=== PATIENT | female | born 1960 | race Asian ===

== ENCOUNTER 2019-02-06 15:10 | Inpatient (IN) | payer OTHER, SELFPAY ==
[2019-02-06] VITALS (24 sets, daily range): BP systolic 138–231; BP diastolic 76–113; PULSE 62–91; RESP 15–24; TEMP 36.7–36.8; O2SAT 86–96; BMI 22.8
--- NOTE | 2019-02-06 15:34 | DI.RAD.S_ITS ---
PROCEDURE: XR CHEST 1V INDICATIONS: chest pain TECHNIQUE: One view of the chest was acquired. COMPARISON: None. FINDINGS: Surgical changes and devices: None. Lungs and pleura: Low lung volumes bilaterally with compressive atelectasis. Tkyam-fzubutyp-ithyl bilateral pleural effusions without pneumothorax. Streaky bibasilar opacities likely representing atelectasis. Minimal interstitial prominence favored to represent hypoventilatory changes. Mediastinum: Mediastinal contours appear normal. Heart size is normal. Bones and chest wall: No suspicious bony lesions. Overlying soft tissues appear unremarkable. IMPRESSION: Jihox-rxkmkjan-mxrvd bilateral pleural effusions with bibasilar atelectasis. Concurrent infection/aspiration not excluded if clinically appropriate. Minimal diffuse interstitial prominence favored to represent hypoventilatory changes. Dictated by: Sigifredo Zuniga M.D. on 02/06/2019 at 15:47 Approved by: Sigifredo Zuniga M.D. on 02/06/2019 at 15:49
[2019-02-06 16:15] LABS: Add Manual Diff / Slide Review NO; Basophils Absolute Auto 100 /uL (0-100); Basophils Percent Auto 1.3 % (0-2); Eosinophils Absolute Auto 100 /uL (0-450); Eosinophils Percent Auto 1.3 % (2-4); Hematocrit 31.4 % (36-46); Hemoglobin 10.6 g/dL (12.0-16.0); Lymphocytes Absolute Auto 2000 /uL (1100-4500); Lymphocytes Percent Auto 21.7 % (25-40); Mean Corpuscular HGB Conc 33.8 % (30-36); Mean Corpuscular Hemoglobin 27.9 PG (26-34); Mean Corpuscular Volume 82.6 fL (80-100); Monocytes Absolute Auto 500 /uL (0-900); Monocytes Percent Auto 5.4 % (3-14); Neutrophils Absolute Auto 6500 /uL (1500-7000); Neutrophils Percent Auto 70.3 % (50-75); Platelet Count 331 X10^3/uL (150-400); Red Cell Distribution Width 14.4 % (11.6-14.8); White Blood Cell Count 9.3 X10^3/uL (4.5-11.0)
[2019-02-06 16:16] LABS: Prothrombin Time 11.2 SECONDS (10.1-12.7)
[2019-02-06 16:18] LABS: HEMOLYSIS < 15 (0-50); Potassium 3.5 mmol/L (3.4-5.1)
[2019-02-06 16:19] LABS: PTT Partial Thromboplastin Tim 34 SECONDS (26.4-36.2)
[2019-02-06 16:20] LABS: Alanine Aminotransferase 54 IU/L (9-52); Albumin 3.5 g/dL (3.5-5.0); Alkaline Phosphatase 134 U/L (38-126); Aspartate Aminotransferase 38 IU/L (14-36); BUN Creatinine Ratio 10.8 (6-22); Bilirubin Total 0.7 mg/dL (0.2-1.3); Blood Urea Nitrogen 26 mg/dL (7-17); Calcium 8.8 mg/dL (8.4-10.2); Carbon Dioxide 26 mmol/L (22-32); Chloride 104 mmol/L (98-107); Creatine Kinase 107 U/L (30-135); Estimated Glomerular Filt Rate 20.8 mL/min (>60); Globulin 3.4 g/dL (1.7-4.1); Glucose 185 mg/dL (70-100); Lipase 188 U/L (23-300); Sodium 140 mmol/L (137-145); Total Protein 6.9 g/dL (6.3-8.2)
--- NOTE | 2019-02-06 16:27 | ED.GENADULT ---
HPI - General Adult General Chief complaint: Hypertension Stated complaint: doctor wants her heart observed Time Seen by Provider: 02/06/19 16:26 Source: patient and family Mode of arrival: ambulatory Limitations: no limitations History of Present Illness HPI narrative: This is a 58-year-old female comes to the emergency department for complaint of hypertension and cough. Patient was saw her primary care provider on Thursday for a cough that she has had for 3 weeks. Patient states she has been taking some cough medication but has not been improving. Her primary care provider stated her blood pressure was quite high and they wanted to come to the ER but she did not. Her states there was some miscommunication and they came today. Patient has any chest pressure pain. She has felt a little short of breath. She states it is worse when she lays flat. She has had a cough that has not really been productive. She did used to be on lisinopril she stopped that months or even longer ago. She states it made her feel a little nauseated. She did not tell any of her physicians until Thursday that she had not been taking it. She does take metformin for diabetes. Denies any dyslipidemia. She has not any prior MIs, strokes. She is not on aspirin daily. Her primary care is through [facility]. She denies fevers, chills no syncope, no headaches, no chest pain or pressure. She has had some swelling that is been over the last 3 or 4 days. She has had some slight nausea. She has had some post-tussive emesis. Denies any bowel movement or urinary issues. She states she has never been told she has any renal disease. She has had a remote history of stress test. Prior . Denies tobacco, alcohol or illicit. Related Data Allergies Allergy/AdvReac Type Severity Reaction Status Date / Time Iodine and Iodide Containing Allergy Verified 02/06/19 15:21 Produc Review of Systems Review of Systems ROS Unobtainable: All systems reviewed & are unremarkable except as noted in HPI and below Constitutional Constitutional: Denies chills, Denies fever(s), Denies lethargy and Denies weakness Cardiovascular Cardiovascular: Denies chest pain, Denies diaphoresis, Denies syncope, Denies rapid heart rate, Reports edema, Denies irregular heart rhythm, Denies lightheadedness, Denies palpitations, Reports dyspnea and Reports orthopnea Respiratory Respiratory: Denies change in phlegm color, Denies chest congestion, Reports cough, Denies excessive phlegm production, Reports dyspnea, Denies stridor and Denies wheezing Gastrointestinal Gastrointestinal: Denies abdominal pain, Denies change in bowel habits, Denies diarrhea, Reports nausea and Reports vomiting (Posttussive emesis) Genitourinary Genitourinary: Denies hematuria, Denies urinary frequency, Denies dysuria, Denies flank pain, Denies urinary incontinence, Denies urinary hesitancy and Denies urinary urgency Musculoskeletal Musculoskeletal: Denies back pain Integumentary/Breasts Skin/Breast: Denies erythema Neurologic Neurologic: Denies syncope and Denies weakness Endocrine Endocrine: Denies palpitations Allergic/Immunologic Allergic/Immunologic: Denies wheezing [facility] Medical History (Updated 02/06/19 @ 18:22 by Shawanda Peck DO) Diabetes (Acute) Hypertension (Acute) Surgical History (Updated 02/06/19 @ 16:57 by Shawanda Peck DO) History of (Acute) Social History (Updated 02/06/19 @ 16:57 by Shawanda Peck DO) Smoking Status: Never smoker substance use type: does not use Social History (Updated 02/06/19 @ 16:57 by Shawanda Peck DO) Smoking Status: Never smoker substance use type: does not use Exam Narrative Exam Narrative: GENERAL: Alert and oriented x three, thin female in mild distress. HEENT: Head normocephalic, atraumatic, EOMI, pupils reactive, face symmetric, moist mucous membranes NECK: Supple, full range of motion CARDIOVASCULAR: Regular rate and rhythm without murmurs, rubs or gallops. RESPIRATORY: Breath sounds equal bilaterally, no wheezes, no rhonchi. No tachypnea. Patient does have crackles in bilateral bases and mid lung. ABDOMEN: Soft, nontender. Normoactive bowel sounds all 4 quadrants. No guarding or rebound, rigidity, no mass : No CVA tenderness EXTREMITIES: Normal range of motion, no clubbing, bilateral lower extremity edema. Neurovascularly intact NEUROLOGICAL: Cranial nerves II through XII grossly intact. Moving all extremities SKIN: Warm, dry, no petechiae, no rashes or lesions. Initial Vital Signs Initial Vital Signs: Vital Signs Temperature 98.0 F 02/06/19 15:21 Pulse Rate 89 09/15/19 15:21 Respiratory Rate 18 02/06/19 15:21 Blood Pressure 231/113 H 02/06/19 15:21 Pulse Oximetry 93 02/06/19 15:21 Course Orders Ordered: ED Orders 02/06/19 15:34 XR chest 1V Stat EKG-12 Lead Stat 02/06/19 15:55 BNP [B Type Natriuretic Peptide] Stat Complete Blood Count AUTO DIFF Stat Comprehensive Metabolic Panel Stat Lipase Stat Partial Thromboplastin Time Stat Prothrombin Time INR Stat Troponin & CK Cardiac Panel Stat 02/06/19 17:48 CT head/brain wo con Stat 02/06/19 18:00 Respiratory Panel (Film Array) Stat Discontinued Medications Aspirin (Aspirin Chew) 324 mg PO NOW ONE Stop: 02/06/19 16:49 Last Admin: 02/06/19 16:56 Dose: 324 mg Documented by: JACQUI Labetalol HCl (Trandate) 10 mg IV NOW ONE Stop: 02/06/19 17:46 Last Admin: 02/06/19 17:59 Dose: 10 mg Documented by: JACQUI Nitroglycerin (Nitro-Bid) 0.5 inch TOP NOW ONE Stop: 02/06/19 16:43 Last Admin: 02/06/19 16:55 Dose: 0.5 inch Documented by: JACQUI Vital Signs Vital signs: Vital Signs - 8 hr 02/06/19 15:21 02/06/19 16:00 02/06/19 16:12 Temperature 98.0 F Pulse Rate 89 83 84 Respiratory Rate 18 24 Blood Pressure 231/113 H Blood Pressure [Left Arm] 217/99 H Blood Pressure [Right Arm] 217/99 H Pulse Oximetry 93 93 02/06/19 16:30 02/06/19 16:55 02/06/19 17:00 Temperature Pulse Rate 84 83 83 Respiratory Rate 18 18 Blood Pressure 211/91 H Blood Pressure [Left Arm] Blood Pressure [Right Arm] 211/99 H 211/96 H Pulse Oximetry 94 92 02/06/19 17:30 02/06/19 17:59 02/06/19 18:30 Temperature Pulse Rate 79 80 72 Respiratory Rate 18 18 Blood Pressure 203/98 H Blood Pressure [Left Arm] Blood Pressure [Right Arm] 201/96 H 178/86 H Pulse Oximetry 91 92 Medical Decision Making Lab Data Lab results reviewed: Yes I reviewed the patient's lab results. Result diagrams: 02/06/19 15:55 02/06/19 15:55 Labs: Lab Results 02/06/19 02/06/19 02/06/19 Range/Units 15:55 15:55 15:55 WBC 9.3 (4.5-11.0) X10^3/uL RBC 3.80 L (4.0-5.2) X10^6/uL Hgb 10.6 L (12.0-16.0) g/dL Hct 31.4 L (36-46) % MCV 82.6 (80-100) fL MCH 27.9 (26-34) PG MCHC 33.8 (30-36) % RDW 14.4 (11.6-14.8) % Plt Count 331 (150-400) X10^3/uL Neut % (Auto) 70.3 (50-75) % Lymph % (Auto) 21.7 L (25-40) % [place] % (Auto) 5.4 (3-14) % Eos % (Auto) 1.3 L (2-4) % Baso % (Auto) 1.3 (0-2) % Neut # (Auto) 6500 (6428-4200) /uL Lymph # (Auto) 2000 (9132-9789) /uL [place] # (Auto) 500 (0-900) /uL Eos # (Auto) 100 (0-450) /uL Baso # (Auto) 100 (0-100) /uL PT 11.2 (10.1-12.7) SECONDS INR 1.0 (0.9-1.3) APTT 34 (26.4-36.2) SECONDS Sodium 140 (137-145) mmol/L Potassium 3.5 (3.4-5.1) mmol/L Chloride 104 (98-107) mmol/L Carbon Dioxide 26 (22-32) mmol/L BUN 26 H (7-17) mg/dL Creatinine 2.40 H (0.52-1.04) mg/dL Estimated GFR 20.8 L (>60) mL/min BUN/Creatinine Ratio 10.8 (6-22) Glucose 185 H (70-100) mg/dL Calcium 8.8 (8.4-10.2) mg/dL Total Bilirubin 0.7 (0.2-1.3) mg/dL AST 38 H (14-36) IU/L ALT 54 H (9-52) IU/L Alkaline Phosphatase 134 H (38-126) U/L Total Creatine Kinase 107 (30-135) U/L CK-MB (CK-2) 1.24 (<2.37) ng/mL CK-MB (CK-2) Rel Index 1.2 L (1.5-5.0) % Troponin I 0.016 (0.01-0.034) ng/mL B-Natriuretic Peptide 292 H (<100) Total Protein 6.9 (6.3-8.2) g/dL Albumin 3.5 (3.5-5.0) g/dL Globulin 3.4 (1.7-4.1) g/dL Albumin/Globulin Ratio 1.0 (1.0-2.8) Lipase 188 (23-300) U/L Imaging Data Chest x-ray: Radiologist's impression: [place] [address] XRay Report Signed Patient: Rose Ramirez LMR#: [id number] : 2Acct:[id number] Age/Sex: 58 / FDate of Service: 02/06/19 Loc: Accession Number: [id number] Procedure: XR chest 1V Ordering Provider: Shawanda Peck D.O. PROCEDURE: XR CHEST 1V INDICATIONS: chest pain TECHNIQUE: One view of the chest was acquired. COMPARISON: None. FINDINGS: Surgical changes and devices: None. Lungs and pleura: Low lung volumes bilaterally with compressive atelectasis. Mobtg-ohiqbtmn-dxqrv bilateral pleural effusions without pneumothorax. Streaky bibasilar opacities likely representing atelectasis. Minimal interstitial prominence favored to represent hypoventilatory changes. Mediastinum: Mediastinal contours appear normal. Heart size is normal. Bones and chest wall: No suspicious bony lesions. Overlying soft tissues appear unremarkable. IMPRESSION: Qgwqb-corofhwv-iandm bilateral pleural effusions with bibasilar atelectasis. Concurrent infection/aspiration not excluded if clinically appropriate. Minimal diffuse interstitial prominence favored to represent hypoventilatory changes. Dictated by: Sigifredo Zuniga M.D. on 02/06/2019 at 15:47 Approved by: Sigifredo Zuniga M.D. on 02/06/2019 at 15:49 CT scan - head: Radiologist's impression: [address] [address] [address] Scan Report Signed Patient: Rose Ramirez LMR#: [id number] : 2Acct:[id number] Age/Sex: 58 / FDate of Service: 02/06/19 Loc: ED Accession Number: [id number] Procedure: CT head/brain wo con Ordering Provider: Shawanda Peck D.O. PROCEDURE: CT HEAD/BRAIN WO CON INDICATIONS: hypertension TECHNIQUE: Noncontrast 4.5 mm thick angled axial sections acquired from the foramen magnum to the vertex, with coronal and sagittal reformats. For radiation dose reduction, the following was used: automated exposure control, adjustment of mA and/or kV according to patient size. COMPARISON: None. FINDINGS: Image quality: Excellent. CSF spaces: Basal cisterns are patent. No extra-axial fluid collections. Ventricles are normal in size and shape. Brain: No midline shift. No intracranial masses or hemorrhage. Kathleen-white matter interface is normal. Incidental note is made of a cavum septum pellucidum, which is typically not a clinically significant finding, when discovered in isolation. The corpus callosum is unremarkable on sagittal images. Skull and face: Calvarium and visualized facial bones are intact, without suspicious lesions. Sinuses: Visualized sinuses and mastoids are clear. IMPRESSION: No acute intracranial hemorrhage is seen. Dictated by: Bar Ortega M.D. on 02/06/2019 at 18:28 Approved by: Bar Ortega M.D. on 02/06/2019 at 18:29 ECG Data Attestation: I personally reviewed and interpreted this ECG as follows: Prior ECG tracings: not available for review Interpretation: Sinus rhythm nonspecific T-wave change. Rate 85 P are 126 QRS of 94 and QTC of 443. MDM Narrative Medical decision making narrative: Patient has anemia today, unknown if this is chronic or not. She does not have an elevated white count with normal platelets. Coags are normal. Patient's creatinine is 2.4 with a BUN of 26. With a GFR of 20. Patient has been urinating. She is not aware of any history of chronic kidney disease has never been told she had decreased renal function. She has slightly elevated LFTs. CK-MB is negative with a normal troponin but BNP is 292. Patient's chest x-ray shows bilateral pleural effusions. She has crackles bilaterally. She is hypertensive here in the department and suspect that her effusions may be secondary to CHF although she could potentially also have infectious or other causes related to renal failure. Spoke with Dr. Max hospitalist she accepts patient's pressures at 2:01 a.m. over 90s with nitro paste, decreased by 25% would bring her down to about 180. We discussed we do not want her to drop below that level. Will try a push dose of labetalol and re-evaluate. She did request head CT prior to transfer over to the floor. Plan for ICU but floor tele, she asks for labetolol 10mg IV push, patient pressure on repeat is 176/86. Respiratory panel. Head CT is negative. Discharge Plan Departure Patient Disposition: Admitted As Inpatient Clinical Impression: Acute kidney injury, Hypertensive urgency CHF (congestive heart failure) Qualifiers: Heart failure chronicity: acute Discharge Date/Time: 02/06/19 18:58 Admit Date/Time: 02/06/19 18:44 Admit Provider: Milagros Max
[2019-02-06 16:30] LABS: B Type Natriuretic Peptide 292 (<100)
[2019-02-06 16:32] LABS: Troponin I 0.016 ng/mL (0.01-0.034)
[2019-02-06 16:36] LABS: CKMB % Relative Index 1.2 % (1.5-5.0); Creatine Kinase MB 1.24 ng/mL (<2.37)
[2019-02-06] MEDS: NITROGLYCERIN OINT 1 INCH/GM OINT...G. 0.5 INCH TOP (16:55)
[2019-02-06] MEDS: ASPIRIN 81 MG CHEW TAB 324 MG PO (16:56)
--- NOTE | 2019-02-06 17:48 | DI.CT.S_ITS ---
PROCEDURE: CT HEAD/BRAIN WO CON INDICATIONS: hypertension TECHNIQUE: Noncontrast 4.5 mm thick angled axial sections acquired from the foramen magnum to the vertex, with coronal and sagittal reformats. For radiation dose reduction, the following was used: automated exposure control, adjustment of mA and/or kV according to patient size. COMPARISON: None. FINDINGS: Image quality: Excellent. CSF spaces: Basal cisterns are patent. No extra-axial fluid collections. Ventricles are normal in size and shape. Brain: No midline shift. No intracranial masses or hemorrhage. Kathleen-white matter interface is normal. Incidental note is made of a cavum septum pellucidum, which is typically not a clinically significant finding, when discovered in isolation. The corpus callosum is unremarkable on sagittal images. Skull and face: Calvarium and visualized facial bones are intact, without suspicious lesions. Sinuses: Visualized sinuses and mastoids are clear. IMPRESSION: No acute intracranial hemorrhage is seen. Dictated by: Bar Ortega M.D. on 02/06/2019 at 18:28 Approved by: Bar Ortega M.D. on 02/06/2019 at 18:29
[2019-02-06] MEDS: LABETALOL 20 MG/4 ML SYRINGE 10 MG IV (17:59)
--- NOTE | 2019-02-06 19:15 | PM.HP.1 ---
History of Present Illness History of Present Illness Date Patient Seen: 02/06/19 Time Patient Seen: 19:15 Chief complaint: doctor wants her heart observed Narrative: The patient is a 58-year-old [place] female who presented earlier in the day upon recommendation of the outpatient clinic. Patient was being acutely seen for cough, however she was noted to have elevated blood pressure and was asked to seek further evaluation in the ED. Patient is known to have a history of HTN and IDDM 2T (both diagnosed between 2001 and 2004). Patient admits to both chronic conditions to be poorly controlled. She specifically notes difficulty remembering to take the medication as well as intolerance to several medications prescribed before. She describes being demoralized when seeking care for the aforementioned ailments and being put off by scornful and intimidating approach from the provider. Patient states that she has not taken antihypertensives or insulin since August 2018. BP previously managed with lisinopril. She has tried metformin and other oral anti glycemics with reported intolerance. Later was placed on Lantus. Patient reports having a week long bout of diarrhea (unable to quantify), 2-3 weeks ago. There was no associated nausea or vomiting. Diarrhea self-resolved. No fever or chills at that time. She has nto traveled, however her does travel often and symptoms started after he returned from one of the trips. She does have exposure to school aged child, however there has not been known illness. No other ill contacts. The patient did travel to [facility] in , potentially had some exposure to ill contacts. Denied prior history of TB and TB like symptoms. In the past week patient has developed non-productive cough. Cough is described as spasmodic, persistent and causes her to dry heavy. The past week has also developed bilateral lower extremity edema that did not improve with extremity elevation and rest. Patient denies starting any new medications. She has been taking Mucinex [id number]. She has not had any headache, change in vision, dyspnea (at rest and with exertion), chest pain, palpitations, dizziness, lightheadedness, syncopal events, abdominal pain, gastrointestinal distress, dysuria, or symptoms of bleeding. Does not endorse particular sense of fatigue. Denies myopathy myalgia. No new rashes. Denies polydipsia, polyuria, and polyphasia; however, has had unintentional weight loss of 10-15 lb since August of 2018. Denies change in pattern of micturition. Presentation to the ED patient was noted to have blood pressure of 231/113 mmHg. Patient was asymptomatic. Patient denies history of heart disease, cerebrovascular events, kidney disease, or thrombosis. Patient History Medical History Current non-drinker of alcohol (Acute) Diabetes mellitus, type II (Acute) Esophageal dysmotility (Acute) Essential hypertension (Acute) Non-smoker (Acute) Family & Social History Family History (Updated 02/07/19 @ 00:07 by MATTHIEU Celis) Father Diabetes mellitus Prostate cancer Mother Hypertension Safety & Behavioral: Feels Safe in Current Yes. . Lives with . She has 1 son. Environment Tobacco & Substance use: Smoking Status Never, denies lifetime use Substance Use Type Never, denies lifetime use Meds Home Medications and Allergies Allergies Allergy/AdvReac Type Severity Reaction Status Date / Time Iodine and Iodide Containing Allergy Verified 02/06/19 15:21 Produc metformin AdvReac Severe Diarrhea Verified 02/07/19 00:18 Review of Systems Review of Systems ROS Unobtainable: All systems reviewed & are unremarkable except as noted in HPI and below Exam Vital Signs (past 8 hours): - 02/06/19 15:21 02/06/19 16:00 02/06/19 16:12 Temperature 98.0 F Pulse Rate 89 83 84 Respiratory Rate 18 24 Blood Pressure 231/113 H Blood Pressure [Left Arm] 217/99 H Blood Pressure [Right Arm] 217/99 H Pulse Oximetry 93 93 02/06/19 16:30 02/06/19 16:55 02/06/19 17:00 Temperature Pulse Rate 84 83 83 Respiratory Rate 18 18 Blood Pressure 211/91 H Blood Pressure [Left Arm] Blood Pressure [Right Arm] 211/99 H 211/96 H Pulse Oximetry 94 92 02/06/19 17:30 02/06/19 17:59 02/06/19 18:30 Temperature Pulse Rate 79 80 72 Respiratory Rate 18 18 Blood Pressure 203/98 H Blood Pressure [Left Arm] Blood Pressure [Right Arm] 201/96 H 178/86 H Pulse Oximetry 91 92 02/06/19 18:47 02/06/19 18:51 02/06/19 19:00 Temperature 98.3 F Pulse Rate 72 74 76 Respiratory Rate 18 21 Blood Pressure 179/85 H 178/86 H 193/102 H Blood Pressure [Left Arm] Blood Pressure [Right Arm] Pulse Oximetry 92 Oxygen Delivery Method Room Air Narrative Exam Narrative: Constitutional: NAD Neurologic: AOx3, no focal neurological deficits Head: NC, AT Eyes: PERRL, EOMI, Ears: external ears normal, no otorrhea Nose: external nose normal, no rhinorrhea or epistaxis Throat: MMM, oropharynx w/o exudate Neck: no masses, lymphadenopathy, or JVD Chest / Respiratory: equal chest rise, unlabored respiratory effort, no tachypnea, diminished, + cough Heart / CV: S1S2, no murmur Abdomen / GI: round, NT, ND, + BS, no organomegaly : no suprapubic tenderness, no CVA Peripheral / Vascular: warm to touch, DP and PT pulses palpable, 1-2+ LE edema Musc: full ROM of upper and lower extremities, adequate muscle tone and bulk Skin: no ecchymosis or suspicious lesions / ulcers Objective Labs Result Diagrams: 02/06/19 15:55 02/06/19 15:55 Labs: Laboratory Results - last 24 hr 02/06/19 02/06/19 02/06/19 15:55 15:55 15:55 WBC 9.3 RBC 3.80 L Hgb 10.6 L Hct 31.4 L MCV 82.6 MCH 27.9 MCHC 33.8 RDW 14.4 Plt Count 331 Neut % (Auto) 70.3 Lymph % (Auto) 21.7 L Hernando % (Auto) 5.4 Eos % (Auto) 1.3 L Baso % (Auto) 1.3 Neut # (Auto) 6500 Lymph # (Auto) 2000 Hernando # (Auto) 500 Eos # (Auto) 100 Baso # (Auto) 100 PT 11.2 INR 1.0 APTT 34 Sodium 140 Potassium 3.5 Chloride 104 Carbon Dioxide 26 BUN 26 H Creatinine 2.40 H Estimated GFR 20.8 L BUN/Creatinine Ratio 10.8 Glucose 185 H Calcium 8.8 Total Bilirubin 0.7 AST 38 H ALT 54 H Alkaline Phosphatase 134 H Total Creatine Kinase 107 CK-MB (CK-2) 1.24 CK-MB (CK-2) Rel Index 1.2 L Troponin I 0.016 B-Natriuretic Peptide 292 H Total Protein 6.9 Albumin 3.5 Globulin 3.4 Albumin/Globulin Ratio 1.0 Lipase 188 Assessment & Plan Assessment and plan (1) Diabetes: Problem details: dx [id number] Current visit: Yes Status: Chronic Assessment & Plan narrative: Patient is being admitted for hypertensive urgency. Hypertensive urgency, acute, present on admission, active BP on presentation, 231/113 w/ suspected acute on chronic renal dysfunction. Patient has not taken any anti hypertensive since August. Trop 0.016 and 0.023. EKG, SR w/ non-specific T wave abnormality. CXR, low lung volumes b/l w/ compressive atelectasis. Cysek-srygkxdj-nipnm bilateral pleural effusions w/o pneumothorax. Streaky bibasilar opacities likely representing atelectasis. Minimal interstitial prominence favored to represent hypoventilatory changes. CT head, negative for acute intracranial pathology - Trop 0.016 and 0.023, continue trending. Denies CP or ACS like symptons - Risk stratify. At high risk for cardiovascular anomalies and neurological events. Discussed w/ patient in detail. - Additional labs: Trop (10 pm and 4 am); BNP, A1C (add-on), FLP (4 am) - Received 325 mg ASA in ED. Continue 81 mg ASA daily. - Received 0.5 inch paste of nitro paste and 10 mg IV labetalol - Give 80 mg of verapamil (SBP 189-193), continue labetalol 10 mg IV Q6H prn - Goal Bp reduction 15-25% in the next 24 hours - Echo - This patient would benefit from an outpatient sleep study - Consider repeating CXR, monitor for s/s of heart failure PAUL on CKD, suspected, present on admission, active I suspected that the patient does have an underlying CKD given history of poorly controlled diabetes and blood pressure. Cr 2.4 on presentation (baseline is not known). GFR 20.8 ml/min. CrCl 24 ml/min per Cockcroft-Gault Equation Alk Phos 134 (concern for CKD-MBD) and Hbg 10.6 (concern for renal anemia), if renal insufficiency is chronic. - Presumed PAUL-on-CKD, w/ suspected target organ damage in the setting of hypertensive urgency - Obtain records from PCP to review labs, determine baseline (order placed request records from the past to PCPs, as patient has recently changed providers) - Trend renal function w/ daily lab - UA to evaluate for proteinuria and abnormal sediment. - Renal ultrasound in a.m. - Gentle hydration - Strick I/O, daily weight DM 2T w/ hyperglycemia, insulin dependent, chronic condition, present on admission, active History of poorly controlled DM w/o prior known complications. Unintentional weight loss of 10-15 lbs since August 2018. Denies polydipsia, polyuria, and polyphagia. - Check A1C - Check UA for proteinuria and abnormal sediment. If proteinuria present, then will quantify by obtaining protein/creatining ratio. - AC/HS, SSI medium dose - D50 prn for hypoglycemia Normocytic normochromic anemia, suspected to be chronic condition, present on admission Hgb 10.6. Patietn is asymptomatic. No s/s of bleeding. Not on AC or anti-thrombotic agents. Denies NSAID use. Potentially multi-factorial... consider nutritional deficiencies and diminished erythropoietin in the setting of kidney disease - iron studies Transaminitis, acute / mild / asymptomatic, present on admission, active AST 38 ALT 54 , potentially in the setting acute inflammation/underlying metabolic derangements vs fatty liver - Trend Cough, acute / persistent, present on admission, active Nonproductive. No associated fever or chills. - acute bronchitis vs acute heart failure - albuterol tx now, and Q4H prn - guaifenesin w/ codeine Q6H prn cough - respiratory viral panel pending Code status discussed. Patient wishes to be full code. Designates spouse Laron Ramirez as a proxy decision maker. Patient denies taking any home medications since August 2018, with exception of Mucinex (acutely). Functionally independent at baseline. VT prophylaxis with heparin SQ, SCDs
[2019-02-06 20:25] LABS: Adenovirus Not Detected (Not Detect); Bordetella pertussis Not Detected (Not Detect); Chlamydophila pneumoniae Not Detected (Not Detect); Coronavirus 229E Not Detected (Not Detect); Coronavirus HKU1 Not Detected (Not Detect); Coronavirus NL 63 Not Detected (Not Detect); Coronavirus OC43 Not Detected (Not Detect); Human Metapneumovirus Not Detected (Not Detect); Human Rhinovirus/Enterovirus Not Detected (Not Detect); Influenza A Not Detected (Not Detect); Influenza B Not Detected (Not Detect); Mycoplasma pneumoniae Not Detected (Not Detect); Parainfluenza Virus 1 Not Detected (Not Detect); Parainfluenza Virus 2 Not Detected (Not Detect); Parainfluenza Virus 3 Not Detected (Not Detect); Parainfluenza Virus 4 Not Detected (Not Detect); Respiratory Syncytial Virus Not Detected (Not Detect)
--- NOTE | 2019-02-06 20:37 | DI.US.S_ITS ---
PROCEDURE: US RENAL COMPLETE INDICATIONS: RENAL INJURY TECHNIQUE: Real-time scanning was performed of the kidneys and bladder, with image documentation. COMPARISON: [facility], CR, XR CHEST 1V, 02/06/2019, 16:27. FINDINGS: Kidneys: Kidneys are normal in size. Right kidney measures 10.6 cm long; left kidney measures 11.2 cm long. Right renal cortical thickness is 1.7 cm; left renal cortical thickness is 1.7 cm. Renal cortical echotexture is normal. No hydronephrosis or nephrolithiasis. No suspicious solid mass lesions. Bladder: Pre-void bladder volume was not able to be assessed as the bladder was empty. Miscellaneous: No free pelvic fluid. Bilateral pleural effusions are present. IMPRESSION: 1. Normal sonographic evaluation of the bilateral kidneys without evidence for obstructive uropathy. 2. Bilateral pleural effusions. Dictated by: Sigifredo Zuniga M.D. on 02/07/2019 at 6:41 Approved by: Sigifredo Zuniga M.D. on 02/07/2019 at 6:49
[2019-02-06 21:08] LABS: B Type Natriuretic Peptide 286 (<100)
[2019-02-06 21:37] LABS: Troponin I 0.023 ng/mL (0.01-0.034)
[2019-02-06] MEDS: SODIUM CHLORIDE 0.9% 1,000 ML 50 ML IV (22:21)
[2019-02-06] MEDS: HEPARIN 5,000 UNIT/ML VIAL 5000 UNIT SUBCUT (22:22)
[2019-02-06] MEDS: VERAPAMIL 80 MG TABLET PO (22:23)
[2019-02-06] MEDS: ALBUTEROL 1.25 MG/3 ML NEB (PEDIATRIC) INH (22:34)
[2019-02-06 23:02] LABS: Appearance Urine UA CLEAR; Bilirubin Urine UA NEGATIVE (NEGATIVE); Color Urine UA YELLOW; Glucose Urine UA 1+ g/dL (Negative); Ketones Urine UA NEGATIVE (NEGATIVE); Leukocyte Esterase Urine UA NEGATIVE (NEGATIVE); Nitrite Urine UA NEGATIVE (Negative); Occult Blood Urine UA 2+ (Negative); Protein Urine UA 3+ (Negative); Specific Gravity Urine UA 1.015 (1.000-1.035); Urobilinogen Urine UA 0.2 E.U./dL (0.2)
--- NOTE | 2019-02-06 23:13 | DI.ECHO.S_ITS ---
[facility] +---------+ Hospital +---------+ : : [address] : : : : [id number] : : : : Phone: [phone]+ Echocardiogram Report + + :Name: KIANA BHATIA Study Date: 02/07/2019 Height: 63 in : :[facility] Weight: 128 lb : : Gender: Female BSA: 1.6 m2 : :: 1960 Age: 58 yrs BP: 184/100 mmHg: :Reason For Study: HYPERTENSIVE URGENCY, PERIPHERAL EDEMA : :Ordering Physician: Diane : :Hospitalist Performed By: Amparo Villalpando : :Referring: GISSELLE QUINTEROS : + + Interpretation Summary The left ventricle is normal in size. Left ventricular systolic function is low normal. The ejection fraction is estimated to be 50-55%. There are no focal wall motion abnormalities. There is probable evidence for grade II LV diastolic dysfunction or pseudonormalization, consistent with increased LV filling pressures. Clinical correlation is recommended. The right ventricle is normal in size and function. The right ventricular systolic pressure is estimated to be at least 42 mmHg based on an estimated right atrial pressure of 15 mm Hg. The left atrium is severely dilated. Right atrial size is normal. There is mild mitral regurgitation. There is no other significant valvular heart disease. The aortic root is normal size. There is a trace pericardial effusion that is circumferential. There are large-sized bilateral pleural effusions noted. Procedure: A two-dimensional transthoracic echocardiogram with color flow and Doppler was performed. The study quality was technically good. There is no prior echocardiogram noted for this patient. The patient was in normal sinus rhythm during the exam. Left Ventricle: The left ventricle is normal in size. There is normal left ventricular wall thickness. Left ventricular systolic function is low normal. The ejection fraction is estimated to be 50-55%. There are no focal wall motion abnormalities. There is probable evidence for grade II LV diastolic dysfunction or pseudonormalization, consistent with increased LV filling pressures. Clinical correlation is recommended. Right Ventricle: The right ventricle is normal in size and function. Atria: The left atrium is severely dilated. Right atrial size is normal. There is no Doppler evidence for an interatrial shunt. Mitral Valve: The mitral valve is normal. There is mild mitral regurgitation. Aortic Valve: The aortic valve is normal in structure and function. There is trace aortic regurgitation. Tricuspid Valve: The tricuspid valve is normal. There is mild tricuspid regurgitation. The right ventricular systolic pressure is estimated to be at least 42 mmHg based on an estimated right atrial pressure of 15 mm Hg. Pulmonic Valve: The pulmonic valve is not well seen, but is grossly normal. There is a trace or physiologic amount of pulmonic regurgitation. There is no other significant valvular heart disease. Great Vessels: The aortic root is normal size. The ascending aorta is normal in size. The aortic arch is normal in size. The pulmonary is not well visualized. The IVC is dilated (diameter is greater than 2.1 cm) and it collapses less than 50% with a sniff. This suggests a high right atrial pressure of 15 mm Hg. Pericardium/ Pleura There is a trace pericardial effusion that is circumferential. There are no echocardiographic indications of cardiac tamponade. There are large-sized bilateral pleural effusions noted. MMode/2D Measurements & Calculations LVIDd: 5.1 cm LVOT diam: 1.8 cm LVIDs: 3.6 cm Ao root diam: 2.8 cm FS: 29.4 % asc Aorta Diam: 3.0 cm EPSS: 1.6 cm Ao Arch Diam (Prox Trans): 2.3 cm IVSd: 0.88 cm LVPWd: 0.88 cm LV temple. diameter/BSA (cm/m^2): 3.2 LV sys. diameter/BSA (cm/m^2): 2.2 LA A2 area: 25.6 cm2 RA long axis: 4.6 cm LA A4 area: 21.9 cm2 RA area: 14.0 cm2 LA length (vol): 5.7 cm RA vol: 36.2 ml LA vol: 83.1 ml RA : 22.6 ml/m2 LA vol index: 51.9 ml/m2 IVC diam: 2.3 cm RVD1 (basal): 2.5 cm RVD2 (mid): 1.7 cm TAPSE: 2.1 cm Doppler Measurements & Calculations Ao V2 max: 156.5 cm/sec LVOT Max Melvin: 88.9 cm/sec Ao V2 mean: 110.7 cm/sec LV V1 max P.2 mmHg Ao max P.8 mmHg LV V1 VTI: 18.1 cm Ao mean P.3 mmHg MYESHA(I,D): 1.4 cm2 Ao V2 VTI: 31.9 cm MYESHA(V,D): 1.4 cm2 sev ratio: 0.57 MYESHA indexed to BSA (cm^2/m^2): 0.86 MV E max melvin: 99.5 cm/sec TR max melvin: 261.8 cm/sec MV A max melvin: 110.8 cm/sec TR max P.4 mmHg MV E/A: 0.90 PA V2 max: 82.4 cm/sec Med Peak E' Melvin: 4.1 cm/sec PA V2 mean: 57.2 cm/sec E/E' med: 24.2 PA mean P.4 mmHg Lat Peak E' Melvin: 5.1 cm/sec PA Accel Time: 0.06 sec E/E' lat: 19.7 E/e' average: 22.0 MV dec time: 0.24 sec SV(LVOT): 44.2 ml Reading Physician:12:23 PM
[2019-02-06 23:16] LABS: Bacteria Urine Few (2-10); Culture Indicated Urine Cult Not Indicated; Hyaline Casts Urine 0-1/LPF; RBC Urine 1-5/HPF (0-5/HPF); Squamous Epithelial Cell Urine 0-1 /HPF (0-5/HPF); WBC Urine 0-1/HPF (0-5/HPF)
--- NOTE | 2019-02-06 23:33 | PC.NURSE ---
zeb note Pt with frequent dry tight cough, nonproductive. Incentive spirometry teaching done by RT. Pt able to pull volume of 500-750 max. Neb tx done. O2 sats 90-92% on room air at rest. UA sent. O2 sats 93% after using bathroom. When pt fell asleep, sats down to 86%. O2 added at 2 L per ER order.
[2019-02-06 23:49] LABS: Hemoglobin A1C% w Est Avg Glu 8.3 % (4.0-6.0)
[2019-02-06 23:58] LABS: Creatinine Urine Random 97.1 mg/dL
[2019-02-07] VITALS (27 sets, daily range): BP systolic 144–199; BP diastolic 70–100; PULSE 59–76; RESP 14–23; TEMP 36.3–36.8; O2SAT 78–97
[2019-02-07] MEDS: LABETALOL 20 MG/4 ML SYRINGE 10 MG IV ×3 (04:09→17:36)
[2019-02-07 04:53] LABS: Cholesterol 220 mg/dL (140-199); HDL Cholesterol 39 mg/dL (40-60); LDL Cholesterol Calculated 150 mg/dL (<100); Triglycerides 157 mg/dL (35-150)
[2019-02-07 04:54] LABS: Alanine Aminotransferase 42 IU/L (9-52); Albumin 2.9 g/dL (3.5-5.0); Albumin Globulin Ratio 0.9 (1.0-2.8); Alkaline Phosphatase 113 U/L (38-126); Aspartate Aminotransferase 36 IU/L (14-36); BUN Creatinine Ratio 10.8 (6-22); Bilirubin Total 0.5 mg/dL (0.2-1.3); Blood Urea Nitrogen 27 mg/dL (7-17); Calcium 8.4 mg/dL (8.4-10.2); Carbon Dioxide 26 mmol/L (22-32); Chloride 106 mmol/L (98-107); Estimated Glomerular Filt Rate 19.9 mL/min (>60); Globulin 3.2 g/dL (1.7-4.1); Glucose 174 mg/dL (70-100); HEMOLYSIS < 15 (0-50); Potassium 3.5 mmol/L (3.4-5.1); Sodium 138 mmol/L (137-145); Total Protein 6.1 g/dL (6.3-8.2)
[2019-02-07 04:56] LABS: Add Manual Diff / Slide Review NO; Basophils Absolute Auto 100 /uL (0-100); Basophils Percent Auto 1.4 % (0-2); Eosinophils Absolute Auto 100 /uL (0-450); Eosinophils Percent Auto 1.8 % (2-4); Hemoglobin 9.2 g/dL (12.0-16.0); Lymphocytes Absolute Auto 2400 /uL (1100-4500); Lymphocytes Percent Auto 30.4 % (25-40); Mean Corpuscular HGB Conc 33.9 % (30-36); Mean Corpuscular Hemoglobin 28.2 PG (26-34); Mean Corpuscular Volume 83.3 fL (80-100); Monocytes Absolute Auto 500 /uL (0-900); Monocytes Percent Auto 5.7 % (3-14); Neutrophils Absolute Auto 4800 /uL (1500-7000); Neutrophils Percent Auto 60.7 % (50-75); Platelet Count 288 X10^3/uL (150-400); Red Blood Cell Count 3.24 X10^6/uL (4.0-5.2); Red Cell Distribution Width 14.3 % (11.6-14.8); White Blood Cell Count 7.9 X10^3/uL (4.5-11.0)
[2019-02-07 05:04] LABS: Troponin I 0.024 ng/mL (0.01-0.034)
[2019-02-07 05:12] LABS: HEMOLYSIS < 15 (0-50); Iron 25 ug/dL (37-170)
[2019-02-07 05:22] LABS: Percent Iron Saturation 14 % (15-50); Total Iron Binding Capacity 178 ug/dL (265-497); Transferrin 152 mg/dL (206-381)
[2019-02-07] MEDS: HEPARIN 5,000 UNIT/ML VIAL 5000 UNIT SUBCUT ×2 (08:19→21:52)
[2019-02-07] MEDS: AMLODIPINE 5 MG TABLET PO (08:19)
[2019-02-07] MEDS: INSULIN ASPART 100 UNIT/ML INSULN PEN SUBCUT ×4 (08:47→21:53)
[2019-02-07] MEDS: ASPIRIN 81 MG CHEW TAB PO (08:48)
[2019-02-07] MEDS: CODEINE/GUAIFENESIN LIQUID 5ML UDC 10 ML PO ×2 (08:49→22:14)
[2019-02-07] MEDS: NITROGLYCERIN OINT 1 INCH/GM OINT...G. 0.5 INCH TOP ×2 (08:53→14:27)
--- NOTE | 2019-02-07 10:35 | PC.NURSE ---
Addendum entered by Aliyah Mantilla R.N. 02/07/19 14:35: pt received 40mg ivp of lasix (one time order) resting comfortably at this time Original Note: pt continues with htn but it responded well with iv dose of labetolol and po amlodipine as well 1/2 ntg - she has persistant dry cough and fair appetite- she denies pain and nausea - no void as of yet
[2019-02-07 11:45] LABS: Troponin I 0.015 ng/mL (0.01-0.034)
[2019-02-07] MEDS: FUROSEMIDE 40 MG/4 ML VIAL IV (14:28)
[2019-02-07 15:00] LABS: Protein (Total) Urine Random 987 mg/dL (0-12); Protein Creatinine Ratio Urine 10.16 GRAM/24H
--- NOTE | 2019-02-07 15:28 | CM.DANOTE ---
DCP/Assessment: Reviewed chart. Patient is a 58yr old female admitted to [facility] for hypertensive emergency. Primary payor is 1)Caitie Ramirze. PCP is Dr. Villar at [facility]. Met with patient explained CM/SW role. Patient reports that she just woke up Patient resides with spouse/Laron in [place]. Patient reports that she is completely I with all ADL's. Patient drives at baseline. Notes report patient with probable medication compliance. Patient clearly reports that she forgets to take her medications. Spoke with RN and she will touch base with spouse about possibility of pill tracking system. P: Anticipate home when medically stable. ROBERTO Jj Discharge Planning/Care Management CM Discharge Assessment Start: 02/07/19 15:25 Freq: Status: Active Protocol: Document 02/07/19 15:25 KJS (Rec: 02/07/19 15:28 KJS [id number]) Discharge Planning Assessment Assigned Clinical Documentation Consultant ROBERTO Jj Advance Directives? No History Provided By Patient,Medical Record Prior Living Arrangements House Household Members spouse Type of transporation used prior to Drives own vehicle admit Is patient alert and oriented? Yes Caregiver for Another No Barriers to Discharge No Discharge Plan Home Transportation Arrangement Spouse to provide transport. Whiteboard Updated in Patient Room with Yes name and ext. # of Clinical Documentation Consultant Review Status In Process Next Review Type Continued Stay Review
--- NOTE | 2019-02-07 16:18 | P.PN_ITS ---
Subjective Subjective Date Patient Seen: 02/07/19 Interval history: Rose Ramirez is a 58-year-old Burmese female with a past medical history significant for medication non-compliance, hypertension, hyperlipidemia, and diabetes mellitus type II, non insulin using who presented earlier in the day upon recommendation of the outpatient clinic. The patient is resting in bed comfortably and in no acute distress. She has a mild non-productive cough related to CHF. She has no other complaints and denies headache, shortness of breath, chest pain, abdominal pain, nausea, vomiting, fever, chills, dysuria, diarrhea or constipation. She is voiding and eliminating without difficulty. She is up ambulating without assistance. Exam Vital Signs (past 8 hours): - 02/07/19 08:53 02/07/19 09:12 02/07/19 10:46 Temperature Pulse Rate 70 69 Respiratory Rate 22 Blood Pressure 184/100 H 155/86 H 161/89 H Pulse Oximetry 94 02/07/19 12:00 02/07/19 12:46 02/07/19 14:00 Temperature 98.3 F Pulse Rate 67 67 Respiratory Rate 21 14 Blood Pressure 173/91 H Pulse Oximetry 93 94 90 L Oxygen Delivery Method Room Air Oxygen Flow Rate 0 Objective Labs Result Diagrams: 02/07/19 04:10 02/07/19 04:10 Labs: Laboratory Results - last 24 hr 02/06/19 02/06/19 02/06/19 15:55 15:55 15:55 WBC RBC Hgb Hct MCV MCH MCHC RDW Plt Count Neut % (Auto) Lymph % (Auto) [place] % (Auto) Eos % (Auto) Baso % (Auto) Neut # (Auto) Lymph # (Auto) [place] # (Auto) Eos # (Auto) Baso # (Auto) PT 11.2 INR 1.0 APTT 34 Sodium 140 Potassium 3.5 Chloride 104 Carbon Dioxide 26 BUN 26 H Creatinine 2.40 H Estimated GFR 20.8 L BUN/Creatinine Ratio 10.8 Glucose 185 H Hemoglobin A1c Calcium 8.8 Magnesium Iron TIBC % Saturation Transferrin Total Bilirubin 0.7 AST 38 H ALT 54 H Alkaline Phosphatase 134 H Total Creatine Kinase 107 CK-MB (CK-2) 1.24 CK-MB (CK-2) Rel Index 1.2 L Troponin I 0.016 B-Natriuretic Peptide 292 H Total Protein 6.9 Albumin 3.5 Globulin 3.4 Albumin/Globulin Ratio 1.0 Triglycerides Cholesterol LDL Cholesterol, Calc HDL Cholesterol Lipase 188 Urine Color Urine Appearance Urine pH Ur Specific [place] Urine Protein Urine Glucose (UA) Urine Ketones Urine Occult Blood Urine Nitrate Urine Bilirubin Urine Urobilinogen Ur Leukocyte Esterase Urine RBC Urine WBC Ur Squamous Epith Cells Urine Bacteria Hyaline Casts Ur Culture Indicated? U Random Total Protein Urine Creatinine Protein/Creatinin Ratio Nasal Screen MRSA (PCR) Chlamy pneumoniae PCR Adenovirus (PCR) B.parapertussis DNA PCR Coronavirus OC43 (PCR) Coronavirus HKU1 (PCR) Coronavirus 229E (PCR) Coronavirus NL63 (PCR) Human Metapneumovir PCR Influenza Type A (PCR) Influenza Type B (PCR) M. pneumoniae (PCR) Parainfluenza 1 (PCR) Parainfluenza 2 (PCR) Parainfluenza 3 (PCR) Parainfluenza 4 (PCR) RSV (PCR) Entero/Rhino (PCR) 02/06/19 02/06/19 02/06/19 15:55 17:00 18:00 WBC RBC Hgb Hct MCV MCH MCHC RDW Plt Count Neut % (Auto) Lymph % (Auto) [place] % (Auto) Eos % (Auto) Baso % (Auto) Neut # (Auto) Lymph # (Auto) [place] # (Auto) Eos # (Auto) Baso # (Auto) PT INR APTT Sodium Potassium Chloride Carbon Dioxide BUN Creatinine Estimated GFR BUN/Creatinine Ratio Glucose Hemoglobin A1c Calcium Magnesium Iron TIBC % Saturation Transferrin Total Bilirubin AST ALT Alkaline Phosphatase Total Creatine Kinase CK-MB (CK-2) CK-MB (CK-2) Rel Index Troponin I B-Natriuretic Peptide 286 H Total Protein Albumin Globulin Albumin/Globulin Ratio Triglycerides Cholesterol LDL Cholesterol, Calc HDL Cholesterol Lipase Urine Color Urine Appearance Urine pH Ur Specific [place] Urine Protein Urine Glucose (UA) Urine Ketones Urine Occult Blood Urine Nitrate Urine Bilirubin Urine Urobilinogen Ur Leukocyte Esterase Urine RBC Urine WBC Ur Squamous Epith Cells Urine Bacteria Hyaline Casts Ur Culture Indicated? U Random Total Protein Urine Creatinine Protein/Creatinin Ratio Nasal Screen MRSA (PCR) Negative for mrsa Chlamy pneumoniae PCR Not detected Adenovirus (PCR) Not detected B.parapertussis DNA PCR Not detected Coronavirus OC43 (PCR) Not detected Coronavirus HKU1 (PCR) Not detected Coronavirus 229E (PCR) Not detected Coronavirus NL63 (PCR) Not detected Human Metapneumovir PCR Not detected Influenza Type A (PCR) Not detected Influenza Type B (PCR) Not detected M. pneumoniae (PCR) Not detected Parainfluenza 1 (PCR) Not detected Parainfluenza 2 (PCR) Not detected Parainfluenza 3 (PCR) Not detected Parainfluenza 4 (PCR) Not detected RSV (PCR) Not detected Entero/Rhino (PCR) Not detected 02/06/19 02/06/19 02/06/19 21:00 21:00 22:30 WBC RBC Hgb Hct MCV MCH MCHC RDW Plt Count Neut % (Auto) Lymph % (Auto) [place] % (Auto) Eos % (Auto) Baso % (Auto) Neut # (Auto) Lymph # (Auto) [place] # (Auto) Eos # (Auto) Baso # (Auto) PT INR APTT Sodium Potassium Chloride Carbon Dioxide BUN Creatinine Estimated GFR BUN/Creatinine Ratio Glucose Hemoglobin A1c 8.3 H Calcium Magnesium Iron TIBC % Saturation Transferrin Total Bilirubin AST ALT Alkaline Phosphatase Total Creatine Kinase CK-MB (CK-2) CK-MB (CK-2) Rel Index Troponin I 0.023 B-Natriuretic Peptide Total Protein Albumin Globulin Albumin/Globulin Ratio Triglycerides Cholesterol LDL Cholesterol, Calc HDL Cholesterol Lipase Urine Color Yellow Urine Appearance Clear Urine pH 5.0 Ur Specific [place] 1.015 Urine Protein 3+ H Urine Glucose (UA) 1+ H Urine Ketones Negative Urine Occult Blood 2+ H Urine Nitrate Negative Urine Bilirubin Negative Urine Urobilinogen 0.2 Ur Leukocyte Esterase Negative Urine RBC 1-5/hpf Urine WBC 0-1/hpf Ur Squamous Epith Cells 0-1 /hpf Urine Bacteria Few (2-10) H Hyaline Casts 0-1/lpf Ur Culture Indicated? Cult not indicated U Random Total Protein Urine Creatinine Protein/Creatinin Ratio Nasal Screen MRSA (PCR) Chlamy pneumoniae PCR Adenovirus (PCR) B.parapertussis DNA PCR Coronavirus OC43 (PCR) Coronavirus HKU1 (PCR) Coronavirus 229E (PCR) Coronavirus NL63 (PCR) Human Metapneumovir PCR Influenza Type A (PCR) Influenza Type B (PCR) M. pneumoniae (PCR) Parainfluenza 1 (PCR) Parainfluenza 2 (PCR) Parainfluenza 3 (PCR) Parainfluenza 4 (PCR) RSV (PCR) Entero/Rhino (PCR) 02/06/19 02/07/19 02/07/19 23:30 04:10 04:10 WBC RBC Hgb Hct MCV MCH MCHC RDW Plt Count Neut % (Auto) Lymph % (Auto) [place] % (Auto) Eos % (Auto) Baso % (Auto) Neut # (Auto) Lymph # (Auto) [place] # (Auto) Eos # (Auto) Baso # (Auto) PT INR APTT Sodium Potassium Chloride Carbon Dioxide BUN Creatinine Estimated GFR BUN/Creatinine Ratio Glucose Hemoglobin A1c Calcium Magnesium Iron 25 L TIBC 178 L % Saturation 14 L Transferrin 152 L Total Bilirubin AST ALT Alkaline Phosphatase Total Creatine Kinase CK-MB (CK-2) CK-MB (CK-2) Rel Index Troponin I B-Natriuretic Peptide Total Protein Albumin Globulin Albumin/Globulin Ratio Triglycerides 157 H Cholesterol 220 H LDL Cholesterol, Calc 150 H HDL Cholesterol 39 L Lipase Urine Color Urine Appearance Urine pH Ur Specific [place] Urine Protein Urine Glucose (UA) Urine Ketones Urine Occult Blood Urine Nitrate Urine Bilirubin Urine Urobilinogen Ur Leukocyte Esterase Urine RBC Urine WBC Ur Squamous Epith Cells Urine Bacteria Hyaline Casts Ur Culture Indicated? U Random Total Protein 987 H Urine Creatinine 97.1 Protein/Creatinin Ratio 10.16 Nasal Screen MRSA (PCR) Chlamy pneumoniae PCR Adenovirus (PCR) B.parapertussis DNA PCR Coronavirus OC43 (PCR) Coronavirus HKU1 (PCR) Coronavirus 229E (PCR) Coronavirus NL63 (PCR) Human Metapneumovir PCR Influenza Type A (PCR) Influenza Type B (PCR) M. pneumoniae (PCR) Parainfluenza 1 (PCR) Parainfluenza 2 (PCR) Parainfluenza 3 (PCR) Parainfluenza 4 (PCR) RSV (PCR) Entero/Rhino (PCR) 02/07/19 02/07/19 02/07/19 04:10 04:10 04:10 WBC 7.9 RBC 3.24 L Hgb 9.2 L Hct 27.0 L MCV 83.3 MCH 28.2 MCHC 33.9 RDW 14.3 Plt Count 288 Neut % (Auto) 60.7 Lymph % (Auto) 30.4 [place] % (Auto) 5.7 Eos % (Auto) 1.8 L Baso % (Auto) 1.4 Neut # (Auto) 4800 Lymph # (Auto) 2400 [place] # (Auto) 500 Eos # (Auto) 100 Baso # (Auto) 100 PT INR APTT Sodium 138 Potassium 3.5 Chloride 106 Carbon Dioxide 26 BUN 27 H Creatinine 2.50 H Estimated GFR 19.9 L BUN/Creatinine Ratio 10.8 Glucose 174 H Hemoglobin A1c Calcium 8.4 Magnesium Iron TIBC % Saturation Transferrin Total Bilirubin 0.5 AST 36 ALT 42 Alkaline Phosphatase 113 Total Creatine Kinase CK-MB (CK-2) CK-MB (CK-2) Rel Index Troponin I 0.024 B-Natriuretic Peptide Total Protein 6.1 L Albumin 2.9 L Globulin 3.2 Albumin/Globulin Ratio 0.9 L Triglycerides Cholesterol LDL Cholesterol, Calc HDL Cholesterol Lipase Urine Color Urine Appearance Urine pH Ur Specific [place] Urine Protein Urine Glucose (UA) Urine Ketones Urine Occult Blood Urine Nitrate Urine Bilirubin Urine Urobilinogen Ur Leukocyte Esterase Urine RBC Urine WBC Ur Squamous Epith Cells Urine Bacteria Hyaline Casts Ur Culture Indicated? U Random Total Protein Urine Creatinine Protein/Creatinin Ratio Nasal Screen MRSA (PCR) Chlamy pneumoniae PCR Adenovirus (PCR) B.parapertussis DNA PCR Coronavirus OC43 (PCR) Coronavirus HKU1 (PCR) Coronavirus 229E (PCR) Coronavirus NL63 (PCR) Human Metapneumovir PCR Influenza Type A (PCR) Influenza Type B (PCR) M. pneumoniae (PCR) Parainfluenza 1 (PCR) Parainfluenza 2 (PCR) Parainfluenza 3 (PCR) Parainfluenza 4 (PCR) RSV (PCR) Entero/Rhino (PCR) 02/07/19 02/07/19 04:10 11:10 WBC RBC Hgb Hct MCV MCH MCHC RDW Plt Count Neut % (Auto) Lymph % (Auto) [place] % (Auto) Eos % (Auto) Baso % (Auto) Neut # (Auto) Lymph # (Auto) [place] # (Auto) Eos # (Auto) Baso # (Auto) PT INR APTT Sodium Potassium Chloride Carbon Dioxide BUN Creatinine Estimated GFR BUN/Creatinine Ratio Glucose Hemoglobin A1c Calcium Magnesium 2.0 Iron TIBC % Saturation Transferrin Total Bilirubin AST ALT Alkaline Phosphatase Total Creatine Kinase CK-MB (CK-2) CK-MB (CK-2) Rel Index Troponin I 0.015 B-Natriuretic Peptide Total Protein Albumin Globulin Albumin/Globulin Ratio Triglycerides Cholesterol LDL Cholesterol, Calc HDL Cholesterol Lipase Urine Color Urine Appearance Urine pH Ur Specific [place] Urine Protein Urine Glucose (UA) Urine Ketones Urine Occult Blood Urine Nitrate Urine Bilirubin Urine Urobilinogen Ur Leukocyte Esterase Urine RBC Urine WBC Ur Squamous Epith Cells Urine Bacteria Hyaline Casts Ur Culture Indicated? U Random Total Protein Urine Creatinine Protein/Creatinin Ratio Nasal Screen MRSA (PCR) Chlamy pneumoniae PCR Adenovirus (PCR) B.parapertussis DNA PCR Coronavirus OC43 (PCR) Coronavirus HKU1 (PCR) Coronavirus 229E (PCR) Coronavirus NL63 (PCR) Human Metapneumovir PCR Influenza Type A (PCR) Influenza Type B (PCR) M. pneumoniae (PCR) Parainfluenza 1 (PCR) Parainfluenza 2 (PCR) Parainfluenza 3 (PCR) Parainfluenza 4 (PCR) RSV (PCR) Entero/Rhino (PCR) Assessment & Plan Assessment & Plan narrative: Rose Ramirez is a 58-year-old Burmese female with a past medical history significant for medication non-compliance, hypertension, hyperlipidemia, and diabetes mellitus type II, non insulin using who presented earlier in the day upon recommendation of the outpatient clinic. 1. Hypertensive emergency, acute, present on admission. Active. -Initial BP on presentation was 231/113 with suspected acute on chronic renal dysfunction. Patient has not taken any anti hypertensive since August. -Serial troponin is within normal limits 0.016 and 0.023. Denies CP or ACS symptoms. -EKG demonstrated sinus rhythm with non-specific T wave abnormality and no acute ischemic changes. -CXR, low lung volumes b/l w/ compressive atelectasis. [id number] bilateral pleural effusions w/o pneumothorax. Streaky bibasilar opacities likely representing atelectasis. Minimal interstitial prominence favored to represent hypoventilatory changes. -CT brain without contrast negative for acute intracranial abnormalities. -Risk stratified due to high risk for cardiovascular anomalies and neurological events with hemoglobin A1C 8.3% and fasting lipid panel -Received 325 mg ASA in ED. Continue 81 mg ASA daily. -Received 0.5 inch paste of nitro paste, labetalol 10 mg IV x 1, and verapamil 80 mg x1. Started amlodipine 5 mg daily, continue nitro paste 0.5 inch every 6 hours. Discussed case with on-call in store marketing representative at [facility], Dr. Alberts who recommended in addition to amlodipine: Lasix 40 mg IV x 1 and repeat renal function tomorrow. If renal function stable may continue diuresis as may improve renal perfusion due to CHF and hypervolemia with decreased perfusion. If renal function worsening hold on diuresis. Start carvdilol 3.125 twice daily tomorrow. Requested medical records from [facility] which are pending. If close to baseline renal function then renal disease is likely due to hypertensive neph rosclerosis and uncontrolled diabetes nephropathy. If significantly worse than baseline and not improving with BP control and diuresis to complete renal work- up including: Hep B and C, HIV, SPEP with immunofixation, and DAT. -Goal BP reduction 15-25% over next 24 hours. -Echocardiogram as below. -The patient would benefit from an outpatient sleep study. 2. Probable PAUL on CKD, suspected, present on admission, active -Suspected that the patient does have an underlying CKD given history of poorly controlled diabetes and blood pressure. -Initial Cr 2.4 on presentation (baseline is not known). GFR 20.8 ml/min. CrCl 24 ml/min per Cockcroft-Gault Equation Alk Phos 134 (concern for CKD-MBD) and Hbg 10.6 (concern for renal anemia), if renal insufficiency is chronic. -Obtain records from PCP to review labs, determine baseline (order placed request records from the past to PCPs, as patient has recently changed providers). -Continue to monitor renal function daily. -UA demonstrated proteinuria and abnormal sediment. -Renal unremarkable. -See above for nephrology recommendations. 3. Acute combined CHF, newly diagnosed, present on admission. Active. -Patient presented with non-productive cough and lower extremity edema with bilateral pleural effusions on chest x-ray. No associated fever or chills. No infectious signs. Respiratory viral PCR negative. -Echocardiogram demonstrated LV normal in size with EF low normal at 50-55%, no focal wall motion abnormalities. There is probable evidence for grade II LV diastolic dysfunction or pseudonormalization, consistent with increased LV filling pressures, RV normal in size and function, RVSP 42 mmHg based on an estimated right atrial pressure of 15 mm Hg, left atrium is severely dilated and right atrial size is normal, mild mitral regurgitation and no other significant valvular heart disease, aortic root is normal size, trace pericardial effusion that is circumferential, and large-sized bilateral pleural effusions noted. -Continue to monitor electrolytes closely and replete as needed. Goal K+ 4.0 and Mg+ 2.0. -Continue strict I &O's, daily weights. -Ordered Lasix 40 mg IV x 1 as above. 4. Diabetes mellitus type II, non-insulin using, chronic, present on admission. Active -History of poorly controlled DM w/o prior known complications. -Unintentional weight loss of 10-15 lbs since August 2018. Denies polydipsia, polyuria, and polyphagia. -Hemoglobin A1C 8.3% indicative of poor glycemic control. -UA demonstrated proteinuria and abnormal sediment. Protein/creatinine ratio pending. -AC/HS, SSI medium dose 5. Normocytic normochromic anemia, suspected to be chronic condition, present on admission -Hgb 10.6. Patietn is asymptomatic. No s/s of bleeding. Not on AC or anti- thrombotic agents. Denies NSAID use. -Potentially multi-factorial and secondary to nutritional deficiencies and diminished erythropoietin in the setting of kidney disease. -Iron studies demonstrated iron deficiency anemia. Plan to start iron sup plementation prior to discharge. 6. Transaminitis, acute / mild / asymptomatic, present on admission. Active. -AST 38 and ALT 54 in the setting decreased perfusion from uncontrolled hypertension and CHF with hypervolemia vs fatty liver -Continue to trend LFTs and treat underlying causes as below. Disposition: Likely to discharge home in several days once BP controlled and renal function improved or stabilized. Quality VTE Deep Vein Thrombosis/Pulmonary Embolism Present on Admission: No
[2019-02-07] MEDS: SODIUM CHLORIDE 0.9% 1,000 ML 50 ML IV (20:19)
[2019-02-07] MEDS: ROSUVASTATIN 10 MG TABLET 5 MG PO (21:52)
[2019-02-08] VITALS (19 sets, daily range): BP systolic 155–199; BP diastolic 73–104; PULSE 67–78; RESP 12–26; TEMP 36.6–37.1; O2SAT 89–95
[2019-02-08] MEDS: LABETALOL 20 MG/4 ML SYRINGE 10 MG IV ×2 (03:04→08:34)
[2019-02-08 05:05] LABS: Add Manual Diff / Slide Review NO; Basophils Absolute Auto 100 /uL (0-100); Basophils Percent Auto 1.4 % (0-2); Eosinophils Absolute Auto 200 /uL (0-450); Eosinophils Percent Auto 3.1 % (2-4); Hematocrit 24.4 % (36-46); Hemoglobin 8.4 g/dL (12.0-16.0); Lymphocytes Absolute Auto 1800 /uL (1100-4500); Lymphocytes Percent Auto 26.3 % (25-40); Mean Corpuscular HGB Conc 34.3 % (30-36); Mean Corpuscular Hemoglobin 28.4 PG (26-34); Monocytes Absolute Auto 500 /uL (0-900); Monocytes Percent Auto 7.3 % (3-14); Neutrophils Absolute Auto 4300 /uL (1500-7000); Neutrophils Percent Auto 61.9 % (50-75); Platelet Count 264 X10^3/uL (150-400); Red Blood Cell Count 2.94 X10^6/uL (4.0-5.2); Red Cell Distribution Width 14.4 % (11.6-14.8)
[2019-02-08 05:06] LABS: Alanine Aminotransferase 35 IU/L (9-52); Albumin 2.6 g/dL (3.5-5.0); Albumin Globulin Ratio 0.8 (1.0-2.8); Alkaline Phosphatase 91 U/L (38-126); Aspartate Aminotransferase 19 IU/L (14-36); BUN Creatinine Ratio 11.3 (6-22); Bilirubin Total 0.3 mg/dL (0.2-1.3); Blood Urea Nitrogen 27 mg/dL (7-17); Carbon Dioxide 26 mmol/L (22-32); Chloride 106 mmol/L (98-107); Estimated Glomerular Filt Rate 20.8 mL/min (>60); Globulin 3.1 g/dL (1.7-4.1); Glucose 198 mg/dL (70-100); HEMOLYSIS < 15 (0-50); Magnesium 1.8 mg/dL (1.6-2.3); Potassium 3.7 mmol/L (3.4-5.1); Sodium 137 mmol/L (137-145); Total Protein 5.7 g/dL (6.3-8.2)
[2019-02-08] MEDS: HEPARIN 5,000 UNIT/ML VIAL 5000 UNIT SUBCUT ×2 (08:34→21:27)
[2019-02-08] MEDS: AMLODIPINE 5 MG TABLET PO (08:34)
[2019-02-08] MEDS: ASPIRIN 81 MG CHEW TAB PO (08:34)
[2019-02-08] MEDS: INSULIN ASPART 100 UNIT/ML INSULN PEN SUBCUT ×4 (08:36→21:28)
[2019-02-08] MEDS: NITROGLYCERIN OINT 1 INCH/GM OINT...G. 0.5 INCH TOP (09:47)
[2019-02-08] MEDS: FUROSEMIDE 40 MG/4 ML VIAL IV ×2 (09:47→11:22)
[2019-02-08] MEDS: CODEINE/GUAIFENESIN LIQUID 5ML UDC 10 ML PO (09:58)
--- NOTE | 2019-02-08 10:44 | DI.RAD.S_ITS ---
PROCEDURE: XR CHEST 1V INDICATIONS: shortness of breath TECHNIQUE: One view of the chest was acquired. COMPARISON: [facility], CR, XR CHEST 1V, 02/06/2019, 16:27. FINDINGS: Surgical changes and devices: None. Lungs and pleura: Stable to slightly increased size of moderate bilateral pleural effusions. Patchy bibasilar opacities likely representing atelectasis. No pneumothorax. Mediastinum: The cardiomediastinal contours remain stable. Heart size is normal. Bones and chest wall: No suspicious bony lesions. Overlying soft tissues appear unremarkable. IMPRESSION: Stable to slight increase in size of moderate bilateral pleural effusions. Stable patchy bibasilar opacities favored to represent compressive atelectasis. No new airspace disease identified. Dictated by: Sigifredo Zuniga M.D. on 02/08/2019 at 10:13 Approved by: Sigifredo Zuniga M.D. on 02/08/2019 at 10:14
--- NOTE | 2019-02-08 10:51 | PM.PN.1 ---
Subjective Subjective Date Patient Seen: 02/08/19 Interval history: The patient is a 58-year-old female who has been non adherent to home medications who presented with hypertensive urgency, pulmonary edema chronic kidney disease. Patient is hypoxic today. She has increasing bilateral pleural effusions. She remains markedly hypertensive. Blood sugars are elevated and glucose has been poorly controlled. She denies any pain. She continues to have lower extremity edema. Exam Vital Signs (past 8 hours): - 02/08/19 03:04 02/08/19 03:10 02/08/19 03:11 Temperature 98.0 F Pulse Rate 74 73 Respiratory Rate 20 Blood Pressure 193/96 H 193/96 H Pulse Oximetry 91 95 02/08/19 04:00 02/08/19 07:00 02/08/19 08:34 Temperature 98.8 F Pulse Rate 67 69 70 Respiratory Rate 16 Blood Pressure 171/85 H 186/79 H 191/99 H Pulse Oximetry 92 02/08/19 09:47 Temperature Pulse Rate 69 Respiratory Rate Blood Pressure 196/104 H Pulse Oximetry Oxygen Delivery Method High Flow Nasal Cannula Oxygen Flow Rate 2 Narrative Exam Narrative: Pleasant female short of breath Neck: JVD to the angle of the jaw Lungs: Decreased breath sounds bilaterally in the bases, no crackles noted Cardiac exam: Regular rate and rhythm normal S1-S2 Abdomen: Soft nontender nondistended no appreciable hepatosplenomegaly Extremities: 1+ pitting edema bilateral Skin exam no lesions noted Psychiatric exam: Patient is awake alert and appropriate. No hallucinations. Answers questions appropriately. Objective Labs Result Diagrams: 02/08/19 04:40 02/08/19 04:40 Labs: Laboratory Results - last 24 hr 02/06/19 02/07/19 02/08/19 23:30 11:10 04:40 WBC 7.0 RBC 2.94 L Hgb 8.4 L Hct 24.4 L MCV 83.0 MCH 28.4 MCHC 34.3 RDW 14.4 Plt Count 264 Neut % (Auto) 61.9 Lymph % (Auto) 26.3 [place] % (Auto) 7.3 Eos % (Auto) 3.1 Baso % (Auto) 1.4 Neut # (Auto) 4300 Lymph # (Auto) 1800 [place] # (Auto) 500 Eos # (Auto) 200 Baso # (Auto) 100 Sodium Potassium Chloride Carbon Dioxide BUN Creatinine Estimated GFR BUN/Creatinine Ratio Glucose Calcium Magnesium Total Bilirubin AST ALT Alkaline Phosphatase Troponin I 0.015 Total Protein Albumin Globulin Albumin/Globulin Ratio U Random Total Protein 987 H Urine Creatinine 97.1 Protein/Creatinin Ratio 10.16 02/08/19 04:40 WBC RBC Hgb Hct MCV MCH MCHC RDW Plt Count Neut % (Auto) Lymph % (Auto) [place] % (Auto) Eos % (Auto) Baso % (Auto) Neut # (Auto) Lymph # (Auto) [place] # (Auto) Eos # (Auto) Baso # (Auto) Sodium 137 Potassium 3.7 Chloride 106 Carbon Dioxide 26 BUN 27 H Creatinine 2.40 H Estimated GFR 20.8 L BUN/Creatinine Ratio 11.3 Glucose 198 H Calcium 8.0 L Magnesium 1.8 Total Bilirubin 0.3 AST 19 ALT 35 Alkaline Phosphatase 91 Troponin I Total Protein 5.7 L Albumin 2.6 L Globulin 3.1 Albumin/Globulin Ratio 0.8 L U Random Total Protein Urine Creatinine Protein/Creatinin Ratio Assessment & Plan Assessment & Plan narrative: 1. Acute hypoxic respiratory failure-likely secondary to bilateral pleural effusion, patient presented with hypertensive urgency. She has been receiving IV fluid, she has bilateral pleural effusions on exam. This is noted on echo cardiac exam and chest x-ray. The patient is hypoxic on room air with O2 sats of 88%. She is requiring 2 L of oxygen. She is short of breath. Echocardiogram confirms ejection fraction of 50-55%, dilated left atrium, mild mitral regurgitation, large bilateral effusions. Suspect the patient has congestive heart failure with preserved LV function. No evidence to suggest systolic dysfunction. Suspect this is a result of her underlying untreated hypertension. At this time the patient will be placed on Lasix, 80 mg IV b.i.d.. Will continue to follow and monitor her renal function closely. 2. Chronic kidney disease, patient presented with a creatinine of 2.5 no baseline labs are noted. Despite Lasix and hydration and creatinine remains the same. Suspect the patient has chronic nephrosclerosis related to hypertensive disease which is chronic. Agree with the plan to hold nephrotoxin agents. Main treatment will be to control blood pressure. Renal ultrasound negative for obstruction. 3. Hypertension, hypertensive urgency present on admission, blood pressure poorly controlled. Will increase amlodipine to 10 mg per day. Will add labetalol 200 b.i.d. and titrate accordingly. Will continue IV Lasix 80 b.i.d. to improve her pulmonary edema. 4. Type 2 diabetes poorly controlled, blood sugars consistently above 200 here in the hospital. Will continue bolus insulin however will add basal insulin at 2 units and titrate accordingly. Goal for blood sugars are to be 100 to 140. 5. Hyperlipidemia, on statin and will continue patient appears to be tolerating it well 6. Iron deficiency anemia, the patient will receive IV iron. Given her underlying renal disease consider 1 dose of erythropoietin following her IV iron infusion. No need for transfusion at this time. 7. Transaminitis, present on admission now resolved will continue to monitor closely. Patient is markedly hypoxic today. Goals will be to improve hypoxia, resolved pulmonary edema/pleural effusions, taper oxygen off, and improved blood pressure. Anticipate length of stay 2-3 days. Quality VTE Deep Vein Thrombosis/Pulmonary Embolism Present on Admission: No
[2019-02-08] MEDS: LABETALOL 100 MG TABLET 200 MG PO (11:53)
[2019-02-08] MEDS: IRON SUCROSE 200 MG in SODIUM CHLORIDE 0.9% 100 ML 220 ML IV (11:53)
[2019-02-08 18:03] LABS: BUN Creatinine Ratio 10.4 (6-22); Blood Urea Nitrogen 26 mg/dL (7-17); Calcium 8.4 mg/dL (8.4-10.2); Carbon Dioxide 26 mmol/L (22-32); Chloride 104 mmol/L (98-107); Estimated Glomerular Filt Rate 19.9 mL/min (>60); Glucose 157 mg/dL (70-100); HEMOLYSIS < 15 (0-50); Potassium 3.7 mmol/L (3.4-5.1); Sodium 138 mmol/L (137-145)
[2019-02-08] MEDS: ALBUTEROL 1.25 MG/3 ML NEB (PEDIATRIC) INH (18:06)
--- NOTE | 2019-02-08 21:17 | PC.NURSE ---
Evening Shift Note Pt BP these evening significantly lower than normal. BRIDGE TEACHER on called to clarify Lasix/Labetalol order due at 2100 and possible medication administration parameters. Verbal orders ok to give Lasix 80 mg IV. Hold Labetalol 200mg PO due at 2100 until 0000 BP check. If SBP greater than 140 okay to give Labetalol. Will pass on to workplace relations adviser.
[2019-02-08] MEDS: FUROSEMIDE 100 MG/10 ML VIAL 80 MG IV (21:27)
[2019-02-08] MEDS: ROSUVASTATIN 10 MG TABLET 5 MG PO (21:27)
[2019-02-08] MEDS: INSULIN GLARGINE 100 UNIT/ML 3ML PEN 10 UNIT SUBCUT (21:29)
[2019-02-09] VITALS (21 sets, daily range): BP systolic 133–190; BP diastolic 67–93; PULSE 62–103; RESP 13–20; TEMP 35.8–36.8; O2SAT 89–96
[2019-02-09] MEDS: LABETALOL 100 MG TABLET 200 MG PO ×3 (00:08→20:40)
[2019-02-09] MEDS: CODEINE/GUAIFENESIN LIQUID 5ML UDC 10 ML PO ×3 (00:14→20:45)
[2019-02-09 05:18] LABS: Add Manual Diff / Slide Review NO; Basophils Absolute Auto 100 /uL (0-100); Basophils Percent Auto 1.3 % (0-2); Eosinophils Absolute Auto 100 /uL (0-450); Eosinophils Percent Auto 1.7 % (2-4); Hematocrit 25.8 % (36-46); Hemoglobin 8.6 g/dL (12.0-16.0); Lymphocytes Absolute Auto 2100 /uL (1100-4500); Lymphocytes Percent Auto 29.6 % (25-40); Mean Corpuscular HGB Conc 33.5 % (30-36); Mean Corpuscular Hemoglobin 27.9 PG (26-34); Mean Corpuscular Volume 83.4 fL (80-100); Monocytes Absolute Auto 300 /uL (0-900); Monocytes Percent Auto 4.9 % (3-14); Neutrophils Absolute Auto 4300 /uL (1500-7000); Neutrophils Percent Auto 62.5 % (50-75); Platelet Count 295 X10^3/uL (150-400); Red Blood Cell Count 3.09 X10^6/uL (4.0-5.2); Red Cell Distribution Width 14.6 % (11.6-14.8)
[2019-02-09 05:23] LABS: BUN Creatinine Ratio 10.4 (6-22); Blood Urea Nitrogen 27 mg/dL (7-17); Calcium 8.4 mg/dL (8.4-10.2); Carbon Dioxide 27 mmol/L (22-32); Chloride 103 mmol/L (98-107); Glucose 172 mg/dL (70-100); HEMOLYSIS < 15 (0-50); Potassium 3.4 mmol/L (3.4-5.1); Sodium 138 mmol/L (137-145)
[2019-02-09] MEDS: HEPARIN 5,000 UNIT/ML VIAL 5000 UNIT SUBCUT ×2 (09:30→20:40)
[2019-02-09] MEDS: ASPIRIN 81 MG CHEW TAB PO (09:30)
[2019-02-09] MEDS: INSULIN ASPART 100 UNIT/ML INSULN PEN SUBCUT ×3 (09:31→17:14)
[2019-02-09] MEDS: FUROSEMIDE 40 MG/4 ML VIAL IV ×2 (10:26→22:11)
--- NOTE | 2019-02-09 10:37 | PM.PN.1 ---
Subjective Subjective Date Patient Seen: 02/09/19 Interval history: Patient reports feeling significantly improved today. She has had continued good urine output. Her blood pressure has improved. However when getting up to go to the bathroom she became markedly hypoxic on room air when returning to the bed. She desaturated to 88%. She has minimal wheezing. She has some mild cough. Patient reports she takes insulin at home and did not tolerate metformin previously. Exam Vital Signs (past 8 hours): - 02/09/19 04:04 02/09/19 04:05 02/09/19 07:36 Temperature 97.9 F 98.1 F Pulse Rate 71 74 Respiratory Rate 15 16 Blood Pressure 133/67 151/78 H Pulse Oximetry 94 94 95 02/09/19 09:30 02/09/19 10:25 Temperature Pulse Rate 71 71 Respiratory Rate Blood Pressure 149/80 H 161/86 H Pulse Oximetry Oxygen Delivery Method High Flow Nasal Cannula Oxygen Flow Rate 3 Narrative Exam Narrative: Pleasant female resting in bed Neck: JVD to the angle of the jaw Lungs: Decreased breath sounds bilateral with end-expiratory wheeze and occasional scattered crackles Cardiac exam: Regular rate and rhythm normal S1-S2 with a 2/6 systolic ejection murmur Abdomen: Soft nontender nondistended Extremities: No edema Objective Labs Result Diagrams: 02/09/19 04:35 02/09/19 04:35 Labs: Laboratory Results - last 24 hr 02/08/19 02/09/19 02/09/19 17:14 04:35 04:35 WBC 7.0 RBC 3.09 L Hgb 8.6 L Hct 25.8 L MCV 83.4 MCH 27.9 MCHC 33.5 RDW 14.6 Plt Count 295 Neut % (Auto) 62.5 Lymph % (Auto) 29.6 [place] % (Auto) 4.9 Eos % (Auto) 1.7 L Baso % (Auto) 1.3 Neut # (Auto) 4300 Lymph # (Auto) 2100 [place] # (Auto) 300 Eos # (Auto) 100 Baso # (Auto) 100 Sodium 138 138 Potassium 3.7 3.4 Chloride 104 103 Carbon Dioxide 26 27 BUN 26 H 27 H Creatinine 2.50 H 2.60 H Estimated GFR 19.9 L 19.0 L BUN/Creatinine Ratio 10.4 10.4 Glucose 157 H 172 H Calcium 8.4 8.4 Assessment & Plan Assessment & Plan narrative: Asssessment & Plan narrative: 1. Acute hypoxic respiratory failure-likely secondary to bilateral pleural effusion, patient presented with hypertensive urgency. She has been receiving IV fluid, she has bilateral pleural effusions on exam. This is noted on echo cardiac exam and chest x-ray. The patient is hypoxic on room air with O2 sats of 88%. She is requiring 2 L of oxygen. She is short of breath. Echocardiogram confirms ejection fraction of 50-55%, dilated left atrium, mild mitral regurgitation, large bilateral effusions. Suspect the patient has congestive heart failure with preserved LV function. No evidence to suggest systolic dysfunction. Suspect this is a result of her underlying untreated hypertension. Patient had excellent response to lasix. Given she remains hypoxic, will decrease lasix from 80mg twice daily to 40mg twice daily 2. Chronic kidney disease, patient presented with a creatinine of 2.5 no baseline labs are noted. Despite Lasix and hydration and creatinine remains the same. Suspect the patient has chronic nephrosclerosis related to hypertensive disease which is chronic. Agree with the plan to hold nephrotoxin agents. Main treatment will be to control blood pressure. Renal ultrasound negative for obstruction. 3. Hypertension, hypertensive urgency present on admission, blood pressure poorly controlled. Blood pressure improved with diuresis, will discontinue amlodipine and continue labetalol 200 b.i.d. and titrate accordingly. Will continue IV Lasix 40 b.i.d. to improve her pulmonary edema. 4. Type 2 diabetes poorly controlled, blood sugars consistently above 200 here in the hospital. Will continue bolus insulin however will add basal insulin at 2 units and titrate accordingly. Goal for blood sugars are to be 100 to 140. Lantus increased to 15 units at night. 5. Hyperlipidemia, on statin and will continue patient appears to be tolerating it well 6. Iron deficiency anemia, the patient will receive IV iron. Given her underlying renal disease consider 1 dose of erythropoietin following her IV iron infusion. No need for transfusion at this time. 7. Transaminitis, present on admission now resolved will continue to monitor closely. Patient is markedly hypoxic today. Goals will be to improve hypoxia, resolved pulmonary edema/pleural effusions, taper oxygen off, and improved blood pressure. Anticipate length of stay 2-3 days. Quality VTE Deep Vein Thrombosis/Pulmonary Embolism Present on Admission: No
--- NOTE | 2019-02-09 13:21 | PC.NURSE ---
Dayshift Note: Pt checked on and assessed. Pt received sitting upright in bed. Pt with visibly reduced facial edema since yesterday. Pt denies pain, SOB, nausea. Pt remains on 2 L HFNC. Pt helped to the bathroom, RA trial with SPO2 down to 86%. Pt reported feeling winded at that time. Pt placed back on 2 L NC. Pt has been mostly resting this shift. Adjustments made to anti-hypertensive medications. See EMAR for details. Will continue to monitor, notify MD with changes.
[2019-02-09] MEDS: POTASSIUM CHLORIDE 20 MEQ TAB 40 MEQ PO (16:35)
--- NOTE | 2019-02-09 16:54 | PC.NURSE ---
Addendum entered by Isabella Davis R.N. 02/09/19 22:22: Please note for am shift: changing IV Furosemide to an earlier time to decrease voiding at night for patient. Will also pass on in report. Addendum entered by Isabella Davis R.N. 02/09/19 21:21: IV leaking, redressed and cleaned. Now flushing well with no leak. Addendum entered by Isabella Davis R.N. 02/09/19 17:51: BLE SCDs placed on patient Original Note: Sinus 70. BP 150/80. +CSM to all extremities. +2 pulses throughout, mild trace edema to BLE, none to BUE. RAC flushing, small amount leaking from site. Will reinforce or replace as needed. Pt remains on PO Labetolol and Lasix. Replacing K of 3.4 with 40mEq of PO KCl. Pt on tele, denies chest pain. +dizzines with ambulating per patient. Pt with extremely diminished LS to bilateral bases. Sats 90's on 2LNC. Pt states she is SOB only with exertion. Denies difficulty breathing. Using IS at bedside effectively. Reviews importance of this part of pulmonary toiletry. +BSx4. No tenderness or distention. No BM since admission. Will discuss with Dr Kraus to request a gentle stool softener. Remains on AC and HS protocol for blood glucose chekcs. Is on SQ insulin and sliding scale. BS 232 at 1630. at bedside. Updated on POC.
[2019-02-09] MEDS: ROSUVASTATIN 10 MG TABLET 5 MG PO (20:40)
[2019-02-09] MEDS: INSULIN GLARGINE 100 UNIT/ML 3ML PEN 15 UNIT SUBCUT (21:18)
[2019-02-10] VITALS (12 sets, daily range): BP systolic 147–191; BP diastolic 74–99; PULSE 64–84; RESP 16–23; TEMP 36.3–37.2; O2SAT 90–97
--- NOTE | 2019-02-10 | DI.RAD.S_ITS ---
PROCEDURE: XR CHEST 1V INDICATIONS: S/P RT THORACENTESIS TECHNIQUE: One view of the chest was acquired. COMPARISON: [facility], , US THORACENTESIS, 02/10/2019, 16:07. [facility], , XR CHEST 1V, 02/08/2019, 10:47. [facility], , XR CHEST 1V, 02/10/2019, 7:36. FINDINGS: Surgical changes and devices: None. Lungs and pleura: No pneumothorax is seen. There is a small amount of right-sided pleural effusion remaining. Moderate left-sided pleural effusion is seen. Mild atelectasis can be seen at the lung bases. Mediastinum: Mediastinal contours appear normal. Heart size is normal. Bones and chest wall: No suspicious bony lesions. Age-appropriate bony degenerative changes are seen. Overlying soft tissues appear unremarkable. IMPRESSION: No pneumothorax post thoracentesis. Nearly resolved right-sided pleural effusion. Moderate left-sided pleural effusion. Dictated by: Bar Ortega M.D. on 02/10/2019 at 17:11 Approved by: Bar Ortega M.D. on 02/10/2019 at 17:12
[2019-02-10] MEDS: CODEINE/GUAIFENESIN LIQUID 5ML UDC 10 ML PO ×2 (04:01→18:34)
[2019-02-10 05:09] LABS: Add Manual Diff / Slide Review NO; Basophils Absolute Auto 100 /uL (0-100); Basophils Percent Auto 1.4 % (0-2); Eosinophils Absolute Auto 200 /uL (0-450); Eosinophils Percent Auto 2.6 % (2-4); Hematocrit 25.4 % (36-46); Hemoglobin 8.7 g/dL (12.0-16.0); Lymphocytes Absolute Auto 1600 /uL (1100-4500); Lymphocytes Percent Auto 24.6 % (25-40); Mean Corpuscular HGB Conc 34.1 % (30-36); Mean Corpuscular Hemoglobin 28.3 PG (26-34); Mean Corpuscular Volume 83.1 fL (80-100); Monocytes Absolute Auto 500 /uL (0-900); Monocytes Percent Auto 7.6 % (3-14); Neutrophils Absolute Auto 4200 /uL (1500-7000); Neutrophils Percent Auto 63.8 % (50-75); Platelet Count 284 X10^3/uL (150-400); Red Blood Cell Count 3.06 X10^6/uL (4.0-5.2); Red Cell Distribution Width 14.4 % (11.6-14.8); White Blood Cell Count 6.6 X10^3/uL (4.5-11.0)
[2019-02-10 05:21] LABS: Blood Urea Nitrogen 31 mg/dL (7-17); Calcium 8.4 mg/dL (8.4-10.2); Carbon Dioxide 26 mmol/L (22-32); Chloride 103 mmol/L (98-107); Estimated Glomerular Filt Rate 15.5 mL/min (>60); Glucose 103 mg/dL (70-100); HEMOLYSIS < 15 (0-50); Potassium 3.9 mmol/L (3.4-5.1); Sodium 138 mmol/L (137-145)
--- NOTE | 2019-02-10 06:11 | PC.NURSE ---
NOC Shift: Pt much better tonight, hypertension well controlled with po medications. Continues to have intermittent cough that causes nausea, emesis controlled w/Codiene Guifenison syrup. Eating well, OOB w/ standby assist. Stable night.
--- NOTE | 2019-02-10 07:31 | DI.RAD.S_ITS ---
PROCEDURE: XR CHEST 1V INDICATIONS: evaluate pleural effusions TECHNIQUE: One view of the chest was acquired. COMPARISON: [facility], , UPPER GI AIR CONTRAST WITH KUB, 09/19/2009, 9:29. [facility], US, US RENAL COMPLETE, 02/07/2019, 7:11. [facility], CR, XR CHEST 1V, 02/08/2019, 10:47. [facility], CR, XR CHEST 1V, 02/06/2019, 16:27. FINDINGS: Surgical changes and devices: None. Lungs and pleura: Lungs are mildly consolidated above bilateral subpulmonic pleural effusions, moderate in size. No pneumothorax. Mediastinum: Mediastinal contours appear normal. Heart size is normal. Bones and chest wall: No suspicious bony lesions. Overlying soft tissues appear unremarkable. IMPRESSION: Stable appearing subpulmonic bilateral pleural effusions with reference to the study from 02/06/19. Secondary consolidation (atelectasis) appears present commensurate with the pleural effusion size bilaterally. Note is made of absence of a chest CT which may be warranted at this time if underlying neoplasm or empyema is clinically suspected. Dictated by: Sabas Gutiérrez M.D. on 02/10/2019 at 8:21 Approved by: aSbas Gutiérrez M.D. on 02/10/2019 at 8:26
--- NOTE | 2019-02-10 07:52 | PM.PN.1 ---
Subjective Subjective Date Patient Seen: 02/10/19 Interval history: The patient is a 58-year-old female who was admitted to the hospital with hypertensive urgency and poorly controlled diabetes. The patient has chronic renal insufficiency. She also developed bilateral pleural effusions and acute hypoxic respiratory failure. Patient was given labetalol for blood pressure control, IV Lasix for her pleural effusions, with and approved min in her oxygenation. Today a with ambulation she desaturated to 88-89%. She had a repeat chest x-ray which confirms bilateral pleural effusions right greater than left. The patient does report heaviness with ambulation. She has had improvement of her lower extremity edema and facial edema. With increasing Lasix her creatinine has increased from 2.4-3.1. Her Lasix has been discontinued. Patient is scheduled for an ultrasound-guided thoracentesis for removal of pleural fluid today. Exam Vital Signs (past 8 hours): - 02/09/19 23:59 02/10/19 00:00 02/10/19 04:00 Temperature 96.4 F L 97.4 F L Pulse Rate 62 64 Respiratory Rate 20 23 Blood Pressure 141/78 H 159/94 H Pulse Oximetry 95 95 95 02/10/19 07:34 Temperature 98.6 F Pulse Rate 70 Respiratory Rate 18 Blood Pressure 164/89 H Pulse Oximetry 93 Oxygen Delivery Method Nasal Cannula Oxygen Flow Rate 2 Narrative Exam Narrative: Pleasant female resting comfortably in no obvious distress Neck veins: Elevated JVD Lungs: Decreased breath sounds with scattered crackles bilaterally Cardiac exam: Regular rate and rhythm normal S1-S2 with a 2/6 systolic ejection murmur Abdomen: Soft nontender nondistended Extremities: Trace edema bilaterally Objective Labs Result Diagrams: 02/10/19 04:35 02/10/19 04:35 Labs: Laboratory Results - last 24 hr 02/10/19 02/10/19 04:35 04:35 WBC 6.6 RBC 3.06 L Hgb 8.7 L Hct 25.4 L MCV 83.1 MCH 28.3 MCHC 34.1 RDW 14.4 Plt Count 284 Neut % (Auto) 63.8 Lymph % (Auto) 24.6 L [place] % (Auto) 7.6 Eos % (Auto) 2.6 Baso % (Auto) 1.4 Neut # (Auto) 4200 Lymph # (Auto) 1600 [place] # (Auto) 500 Eos # (Auto) 200 Baso # (Auto) 100 Sodium 138 Potassium 3.9 Chloride 103 Carbon Dioxide 26 BUN 31 H Creatinine 3.10 H Estimated GFR 15.5 L BUN/Creatinine Ratio 10.0 Glucose 103 H Calcium 8.4 Assessment & Plan Assessment & Plan narrative: 1. Acute hypoxic respiratory failure. Patient presented with hypertensive urgency and chronic kidney disease. She was given IV hydration and has since developed bilateral effusions. Attempted to remove fluid with Lasix however she developed worsening renal insufficiency. Her Lasix is now being held. The patient is scheduled for a ultrasound-guided thoracentesis for drainage of the large left pleural effusion today. Hopefully after her thoracentesis she will be able to be tapered off her oxygen. 2. Chronic kidney disease stage 3, present on admission, suspect her baseline is around 2.4-2.5. Will hold further diuresis. Repeat labs in the morning. 3. Hypertensive urgency. Patient's blood pressure has improved on labetalol. Amlodipine has been held. Lasix has been held as well. Will continue to titrate for improved blood pressure control over the next week or so. 4. Type 2 diabetes, suboptimal control. Lantus increased to 15 units last evening blood sugar this morning is 116 which is improved. Will continue current dosing. 5. Iron deficiency anemia patient received Venofer. Will continue oral iron 6. Hyperlipidemia, continue statin 7. Transaminitis, present on admission now resolved Plans for care patient will be discharged home when she is no longer hypoxic. Quality VTE Deep Vein Thrombosis/Pulmonary Embolism Present on Admission: No
[2019-02-10 09:16] LABS: Prothrombin Time 11.2 SECONDS (10.1-12.7)
[2019-02-10 09:18] LABS: PTT Partial Thromboplastin Tim 34 SECONDS (26.4-36.2)
[2019-02-10] MEDS: ASPIRIN 81 MG CHEW TAB PO (09:25)
[2019-02-10] MEDS: BISACODYL 5 MG TABLET 10 MG PO (09:25)
[2019-02-10] MEDS: LABETALOL 100 MG TABLET 200 MG PO ×2 (09:25→22:13)
[2019-02-10] MEDS: ONDANSETRON 8 MG in SODIUM CHLORIDE 0.9% 50 ML 216 ML IV ×2 (11:44→17:56)
--- NOTE | 2019-02-10 15:03 | DI.US.S_ITS ---
PROCEDURE: US THORACENTESIS INDICATIONS: REMOVE FLUID, THERAPEUTIC TECHNIQUE: The indications, alternatives, benefits, risks, and complications of the procedure were explained to the patient. Written informed consent was obtained and placed in the chart. The chest was examined sonographically, and an appropriate site was chosen for thoracentesis. The skin was prepared and draped in the usual sterile fashion, and 1% lidocaine was infiltrated from the skin down through the pleural surface. A 19-gauge catheter-covered needle was then introduced into the pleural space, the catheter was advanced and the needle was withdrawn, and thereafter pleural fluid was aspirated. The catheter was then removed and a dressing was applied. COMPARISON: None. FINDINGS: Access site: Right hemithorax. Needle: One-Step centesis catheter with introducer needle. Fluid volume and description: 1500 cc, clear, yellow tinged Fluid sent for diagnostic testing: Not requested Medications: 1% lidocaine for local anaesthesia. Complications: None; post-procedural chest radiograph demonstrates no pneumothorax. IMPRESSION: Successful ultrasound-guided thoracentesis. (For concern for potential bilateral pneumothorax, only one thoracentesis was performed. It is clinically desired to also do a thoracentesis on the left side, please order that to be performed on the following day.) Dictated by: Bar Ortega M.D. on 02/10/2019 at 17:09 Approved by: Bar Ortega M.D. on 02/10/2019 at 17:11
--- NOTE | 2019-02-10 15:58 | PC.NURSE ---
Pt with uneventful shift. Nausea with walking, pt had BM today. Zofran given with good relief. Remains on 2L NC, unable to wean to RA, SPO2 at rest down to 87%. Pt reports SOB on exertion. Thoracentesis ordered for today, pt is currently at radiology for thoracentesis.
--- NOTE | 2019-02-10 17:31 | PC.NURSE ---
1700- Patient returned from radiology procedure. 1500ml of clear yellow fluid removed from the right chest. Patient tolerated well. Patient back to room and placed on 2l cannula. BG 73 no sliding scale given per protocol. Patient eating dinner. Will monitor.
[2019-02-10] MEDS: HEPARIN 5,000 UNIT/ML VIAL 5000 UNIT SUBCUT (22:08)
[2019-02-10] MEDS: ROSUVASTATIN 10 MG TABLET 5 MG PO (22:09)
--- NOTE | 2019-02-10 23:32 | PC.NURSE ---
pt had an ongoing nausea and vomiting for zeb shift, despite getting her zofran and reglan. emesis greenish bile fluid. bt are hypoactive. urine output 75cc, dark cristela color. pt refused to dc beal. pt gets nauseous with movement. CAITLIN output 60cc. 2100 PO meds are not given due to n/v. notified Dr. Varela, VTO for LR 500cc, sco patch and compazine. NPO. CAITLIN incision site dressing changed at 1900.
[2019-02-11] VITALS (17 sets, daily range): BP systolic 128–146; BP diastolic 65–77; PULSE 69–84; RESP 15–19; TEMP 36.7–37.4; O2SAT 93–98
[2019-02-11] MEDS: CODEINE/GUAIFENESIN LIQUID 5ML UDC 10 ML PO ×3 (02:03→16:31)
[2019-02-11 06:13] LABS: BUN Creatinine Ratio 9.7 (6-22); Blood Urea Nitrogen 33 mg/dL (7-17); Carbon Dioxide 24 mmol/L (22-32); Chloride 105 mmol/L (98-107); Estimated Glomerular Filt Rate 13.9 mL/min (>60); Glucose 117 mg/dL (70-100); HEMOLYSIS < 15 (0-50); Potassium 3.8 mmol/L (3.4-5.1); Sodium 138 mmol/L (137-145)
--- NOTE | 2019-02-11 06:35 | PC.NURSE ---
Pt admitted with HTN urgency and bilat pleural effusions. Thoracentesis done on right side yesterday, removed 1500cc. Pt states breathing improved, now with freq cough producing clear sputum. 2L oc with sats mid 90's. Hx DM. Held HS glargine for BG in 60's. Pt BG at 0200 of 105. Denies nausea and pain. Plan for left thoracentesis overnight. PRN cough syrup x1. Pt with ejection fraction of 50%, easily SOB on ambu to BR.
--- NOTE | 2019-02-11 06:46 | PC.NURSE ---
Pt POD 1 of Right hip repair. CMS intact. Pt with baseline lower extremity neuropathy. Denies post op pain, reports pain at back only from chronic back pain. Denies need for pain med. Denies nausea. Repositioned q2hr overnight, pt unable to lie on right side or back. Lorenzo patent, 350 dark UOP. Epidural/Spinal protocol for 24hrs. Pt returned to floor at 2000 last zeb. On cont pulse until 08-0900, sats mid 90's, desats to mid 80's on room air. Supportive spouse in room.
[2019-02-11] MEDS: BISACODYL 5 MG TABLET 10 MG PO (09:33)
[2019-02-11] MEDS: HEPARIN 5,000 UNIT/ML VIAL 5000 UNIT SUBCUT ×2 (09:33→20:42)
[2019-02-11] MEDS: ASPIRIN 81 MG CHEW TAB PO (09:41)
[2019-02-11] MEDS: LABETALOL 100 MG TABLET 200 MG PO ×2 (09:41→20:43)
[2019-02-11] MEDS: ONDANSETRON 8 MG in SODIUM CHLORIDE 0.9% 50 ML 216 ML IV (11:15)
[2019-02-11] MEDS: INSULIN ASPART 100 UNIT/ML INSULN PEN SUBCUT ×3 (12:38→20:49)
--- NOTE | 2019-02-11 14:21 | P.PN_ITS ---
Subjective Subjective Date Patient Seen: 02/11/19 Time Patient Seen: 10:00 Interval history: The patient is a 58-year-old female who was admitted to the hospital with hypertensive urgency and poorly controlled diabetes. The patient has chronic renal insufficiency. She also developed bilateral pleural effusions and acute hypoxic respiratory failure. Patient was given labetalol for blood pressure control, IV Lasix for her pleural effusions, with and approved min in her oxygenation. She had a thoracentesis yesterday for bilateral pleural effusions which was not sent for fluid analysis. Her symptoms have not changed much today. Her creatinine has worsened to 3.4 today. Her diuresis has been held and we will send further workup for her worsening kidney disease tomorrow morning. Will wait to see if there is improved function tomorrow after holding diuresis. Exam Vital Signs (past 8 hours): - 02/11/19 08:00 02/11/19 09:19 02/11/19 12:00 Temperature 99.3 F 98.8 F Pulse Rate 80 70 Respiratory Rate 15 16 Blood Pressure 146/74 H 142/69 H Pulse Oximetry 95 93 97 02/11/19 12:36 Temperature Pulse Rate 70 Respiratory Rate Blood Pressure 142/69 H Pulse Oximetry Oxygen Delivery Method Nasal Cannula Oxygen Flow Rate 1 Narrative Exam Narrative: GENERAL APPEARANCE: Chronically ill appearing, no apparent distress, appears mildly fatigued. SKIN: Inspection of the skin reveals no rashes, ulcerations or petechiae. HEENT: The sclerae were anicteric and conjunctivae were pink and moist. Extraocular movements were intact and pupils were equal, round with normal accommodation. External inspection of the ears and nose showed no scars, lesions, or masses. Lips, teeth, and gums showed normal mucosa. The oral mucosa, hard and soft palate, tongue and posterior pharynx were unremarkable. NECK: Supple and symmetric. There was no thyroid enlargement, and no tenderness, or masses were felt. CHEST: Normal AP diameter and normal contour without any kyphoscoliosis. LUNGS: Diminished breath sounds bilateral lung bases with R > L. CARDIOVASCULAR: There was a regular rate and rhythm without any murmurs, gallops, rubs. Peripheral pulses were 2+ and symmetric. ABDOMEN: Soft and nontender with normal bowel sounds. No ascites was noted. MUSCULOSKELETAL: There was no tenderness or effusions noted. Muscle strength and tone were normal. EXTREMITIES: No cyanosis, clubbing. Minimal peripheral edema. NEUROLOGIC: Alert and oriented x 3. Normal affect. Strength is +5/5 in the Upper Extremities and Lower Extremities Bilaterally. Sensation to touch was normal. Objective Labs Result Diagrams: 02/10/19 04:35 02/11/19 05:40 Labs: Laboratory Results - last 24 hr 02/11/19 05:40 Sodium 138 Potassium 3.8 Chloride 105 Carbon Dioxide 24 BUN 33 H Creatinine 3.40 H Estimated GFR 13.9 L BUN/Creatinine Ratio 9.7 Glucose 117 H Calcium 8.0 L Assessment & Plan Assessment & Plan narrative: 1. Acute hypoxic respiratory failure. Patient presented with hypertensive urgency and chronic kidney disease. She was given IV hydration and has since developed bilateral effusions. Attempted to remove fluid with Lasix however she developed worsening renal insufficiency. Her Lasix is now being held given worsening kidney function. 2. Acute kidney injury in setting of Chronic kidney disease stage 3, present on admission. Will hold further diuresis. Repeat labs in the morning. Send additional workup per initial notes from admitting provider. Hep B and C, HIV, SPEP with immunofixation, and DAT 3. Hypertensive urgency. Resolved. Patient's blood pressure has improved on labetalol. Amlodipine has been held. Lasix has been held as well. Will contin ue current medications. 4. Type 2 diabetes, suboptimal control. Lantus 15 units. Will continue current dosing. 5. Iron deficiency anemia patient received Venofer. Will continue oral iron 6. Hyperlipidemia, continue statin 7. Transaminitis, present on admission now resolved Quality VTE Deep Vein Thrombosis/Pulmonary Embolism Present on Admission: No
[2019-02-11] MEDS: ROSUVASTATIN 10 MG TABLET 5 MG PO (20:42)
[2019-02-11] MEDS: INSULIN GLARGINE 100 UNIT/ML 3ML PEN 10 UNIT SUBCUT (20:52)
[2019-02-12] VITALS (15 sets, daily range): BP systolic 140–185; BP diastolic 74–90; PULSE 61–87; RESP 16–18; TEMP 36.8–37.3; O2SAT 93–97
[2019-02-12] MEDS: SODIUM CHLORIDE 0.9% FLUSH 10 ML IV (03:58)
[2019-02-12] MEDS: CODEINE/GUAIFENESIN LIQUID 5ML UDC 10 ML PO (03:58)
--- NOTE | 2019-02-12 05:46 | PC.NURSE ---
Pt denies SOB at rest, noted mild SOB with SBA to BR. Pt lung sound on right coarse at bases, clear at apex. Lung sound in left lower lobe diminished. Provider notes read may perform left side thoracentesis. Pt with decreasing productive cough, sputum clear and cough began post right side thoracentesis. BP stable, on labetolol. On tele in NSR. 0300 BG 204. Pt needs reinforcement regarding effective management of DM. Reinforce fall precautions and need to use call light for all OOB acitivity as pt with weakness, and lack of awareness regarding her own limitations.
[2019-02-12 07:58] LABS: BUN Creatinine Ratio 9.8 (6-22); Blood Urea Nitrogen 39 mg/dL (7-17); Carbon Dioxide 27 mmol/L (22-32); Chloride 105 mmol/L (98-107); Estimated Glomerular Filt Rate 11.5 mL/min (>60); Glucose 106 mg/dL (70-100); HEMOLYSIS < 15 (0-50); Potassium 3.9 mmol/L (3.4-5.1); Sodium 138 mmol/L (137-145)
[2019-02-12 08:46] LABS: Hepatitis B Surface Antigen NEGATIVE s/c (NEGATIVE)
[2019-02-12 08:55] LABS: HIV 1 & 2 Ab/Ag 4th Gen Combo NEGATIVE (NEGATIVE); Hep C Virus Ab w/Reflex Quant NEGATIVE s/c (NEGATIVE)
[2019-02-12] MEDS: BISACODYL 5 MG TABLET 10 MG PO (10:26)
[2019-02-12] MEDS: LABETALOL 100 MG TABLET 200 MG PO ×2 (10:26→21:41)
[2019-02-12] MEDS: HEPARIN 5,000 UNIT/ML VIAL 5000 UNIT SUBCUT ×2 (10:26→21:44)
[2019-02-12] MEDS: ASPIRIN 81 MG CHEW TAB PO (10:26)
[2019-02-12] MEDS: INSULIN ASPART 100 UNIT/ML INSULN PEN SUBCUT ×2 (10:47→17:30)
--- NOTE | 2019-02-12 11:03 | PM.PN.1 ---
Subjective Subjective Date Patient Seen: 02/12/19 Time Patient Seen: 09:10 Interval history: Rose Ramirez is a 58-year-old [place] female with a past medical history significant for medication non-compliance, hypertension, hyperlipidemia, and diabetes mellitus type II, non insulin using who was admitted for hypertensive emergency and has continued to be admitted for acute renal failure which seems to be worsening. I called Dr. Haynes with [facility] to discuss the case. She again agreed with the workup who ordered yesterday including hepatitis, HIV, DAT, and protein electrophoresis. She recommends further aggressive diuresis with 80 mg IV b.i.d. today and to watch her creatinine even further. If she does not improve with her diuresis, she may ultimately require dialysis and need transfer, but not at this time. Exam Vital Signs (past 8 hours): - 02/12/19 03:11 02/12/19 05:00 02/12/19 07:30 Temperature 98.2 F 98.8 F Pulse Rate 68 71 Respiratory Rate 16 16 Blood Pressure 142/76 H 140/78 Pulse Oximetry 94 95 95 02/12/19 10:00 02/12/19 10:05 Temperature Pulse Rate 61 Respiratory Rate 18 Blood Pressure Pulse Oximetry 97 97 Fraction of Inspired Oxygen 24 Oxygen Delivery Method Nasal Cannula Oxygen Flow Rate 1 Narrative Exam Narrative: GENERAL APPEARANCE: Chronically ill appearing, no apparent distress, appears mildly fatigued. SKIN: Inspection of the skin reveals no rashes, ulcerations or petechiae. HEENT: The sclerae were anicteric and conjunctivae were pink and moist. Extraocular movements were intact and pupils were equal, round with normal accommodation. External inspection of the ears and nose showed no scars, lesions, or masses. Lips, teeth, and gums showed normal mucosa. The oral mucosa, hard and soft palate, tongue and posterior pharynx were unremarkable. NECK: Supple and symmetric. There was no thyroid enlargement, and no tenderness, or masses were felt. CHEST: Normal AP diameter and normal contour without any kyphoscoliosis. LUNGS: Diminished breath sounds bilateral lung bases with R > L. CARDIOVASCULAR: There was a regular rate and rhythm without any murmurs, gallops, rubs. Peripheral pulses were 2+ and symmetric. ABDOMEN: Soft and nontender with normal bowel sounds. No ascites was noted. MUSCULOSKELETAL: There was no tenderness or effusions noted. Muscle strength and tone were normal. EXTREMITIES: No cyanosis, clubbing. Minimal peripheral edema. NEUROLOGIC: Alert and oriented x 3. Normal affect. Strength is +5/5 in the Upper Extremities and Lower Extremities Bilaterally. Sensation to touch was normal. Objective Labs Result Diagrams: 02/10/19 04:35 02/12/19 06:19 Labs: Laboratory Results - last 24 hr 02/12/19 02/12/19 02/12/19 06:19 06:19 06:19 Sodium 138 Potassium 3.9 Chloride 105 Carbon Dioxide 27 BUN 39 H Creatinine 4.00 H Estimated GFR 11.5 L BUN/Creatinine Ratio 9.8 Glucose 106 H Calcium 8.0 L Hep Bs Antigen Negative Hepatitis C Antibody Negative HIV 1&2 Ab/P24 Ag 4thGn Negative Assessment & Plan Assessment & Plan narrative: Rose Ramirez is a 58-year-old Iraqi female with a past medical history significant for medication non-compliance, hypertension, hyperlipidemia, and diabetes mellitus type II, non insulin using who was admitted for hypertensive emergency, respiratory failure from volume overload, and has continued to be admitted for acute renal failure which seems to be worsening. 1. Acute hypoxic respiratory failure. Patient presented with hypertensive urgency and chronic kidney disease. She was given IV hydration initially and has since developed bilateral effusions. Attempted to remove fluid with Lasix however she developed worsening renal insufficiency, Lasix was then held and patient had thoracenteis to remove fluid. After speaking with the on-call medicaid billing clerk today her acute kidney injuries may still be in the setting of volume overload, and will attempt high dose Lasix today to see if any improvement is noted. She may ultimately need dialysis for volume overload. - Lasix IV 80 mg BID today - follow Cr - oxygen as needed 2. Acute kidney injury in setting of Chronic kidney disease stage 3, present on admission. Repeat labs show a rising Cr to 4 today. Sent additional workup per initial notes from admitting provider. Hep B and C, HIV, SPEP with immunofixation, and DAT which are pending. Discussed with on-call medicaid billing clerk Dr. Haynes who recommends Lasix IV 80 mg BID today for overload. She may ultimately require dialysis if she continues to worsen. - lasix as noted above - repeat Cr tomorrow and discuss with neprhology tomorrow if no further improvement. 3. Hypertensive urgency. Resolved. Patient's blood pressure has improved on labetalol 200 mg TID. Amlodipine has been held. Lasix as noted above. 4. Type 2 diabetes, suboptimal control. Lantus 15 units. Will continue current dosing. 5. Iron deficiency anemia patient received Venofer. Will continue oral iron 6. Hyperlipidemia, continue statin 7. Transaminitis, present on admission now resolved Code: full DVT: HSQ Dispo: remains inpatient. Quality VTE Deep Vein Thrombosis/Pulmonary Embolism Present on Admission: No
[2019-02-12] MEDS: FUROSEMIDE 100 MG/10 ML VIAL 80 MG IV (14:28)
--- NOTE | 2019-02-12 15:36 | PC.NURSE ---
Pt denies SOB, ls diminished bilaterally; O2 1L=94%; pt denies nausea; , Laron provided lunch and patient tolerated well; this RN updated Laron regarding possible transfer to [facility] for nephrology; oncoming RN informed, as well Pt remained hypertensive throughout the shift with last SBP 162, IV lasix infused and pt instructed to use call light; bed alarm active due to patient's impulsiveness and moderate risk of fall
[2019-02-12] MEDS: ROSUVASTATIN 10 MG TABLET 5 MG PO (21:44)
[2019-02-12] MEDS: INSULIN GLARGINE 100 UNIT/ML 3ML PEN 10 UNIT SUBCUT (21:45)
[2019-02-13] VITALS (24 sets, daily range): BP systolic 146–190; BP diastolic 73–92; PULSE 68–82; RESP 15–18; TEMP 36.6–37.3; O2SAT 86–100
[2019-02-13] MEDS: FUROSEMIDE 100 MG/10 ML VIAL 80 MG IV ×3 (02:38→22:57)
[2019-02-13] MEDS: SODIUM CHLORIDE 0.9% FLUSH 10 ML IV (02:42)
--- NOTE | 2019-02-13 04:55 | PC.NURSE ---
Addendum entered by Bonnie Edgar R.N. 02/13/19 05:40: Pt on tele in NSR Original Note: Pt with HTN up to 180-190/90's, HR stable in the 70's. Pt denies chest pain, palpitations, nausea. SOB present on exertion at pt baseline. MD notified of HTN. New order for Amlodipine 5mg PO, provider stated he would like first dose now (0420). Pt o2 sat mid 90's on room air most of night, desat to 86% on room air. o2 2L initiated with brisk return of o2 at 93% on 2L. Pt ordered for 80mg IV lasix BID, second dose admin late, provider notified. Pt needs strong reinforcement use call light for all OOB activity due to weakness, o2 tubing, neck pain, SOB. Pt turns off bed alarm, Pt wearing yellow gown/slippers. Refused SCDs. Frequency of cough decreasing, occasional clear sputum produced post right side thoracentesis on 02/10. Monitoring creat level and fluid volume status. Possible transfer to [facility] Nephrology service today.
[2019-02-13] MEDS: AMLODIPINE 5 MG TABLET PO (06:10)
[2019-02-13 06:24] LABS: BUN Creatinine Ratio 12.9 (6-22); Blood Urea Nitrogen 45 mg/dL (7-17); Carbon Dioxide 25 mmol/L (22-32); Chloride 106 mmol/L (98-107); Estimated Glomerular Filt Rate 13.5 mL/min (>60); Glucose 136 mg/dL (70-100); HEMOLYSIS < 15 (0-50); Magnesium 1.7 mg/dL (1.6-2.3); Phosphorous 4.9 mg/dL (2.5-4.5); Potassium 3.8 mmol/L (3.4-5.1); Sodium 138 mmol/L (137-145)
--- NOTE | 2019-02-13 07:00 | DI.RAD.S_ITS ---
PROCEDURE: XR CHEST 2V INDICATIONS: SOB, Pleural effusions TECHNIQUE: 2 views of the chest were acquired. COMPARISON: [facility], CR, XR CHEST 1V, 02/10/2019, 16:41. FINDINGS: Surgical changes and devices: None. Lungs and pleura: There is a persistent small to moderate left pleural effusion which appears similar in size to the prior study. A small right pleural effusion has increased in size. There are also associated bibasilar opacities consistent with compressive atelectasis or consolidation, with interval increase on the right. Mild pulmonary vascular prominence is noted suggestive of mild edema. Mediastinum: Mediastinal contours are unchanged. Heart size is normal. Bones and chest wall: No suspicious bony abnormalities. Soft tissues appear unremarkable. IMPRESSION: 1. Persistent small to moderate left and increased small right pleural effusion with associated compressive atelectasis or consolidation in the lung bases. 2. Mild pulmonary edema appears slightly increased. Dictated by: Angel Anderson M.D. on 02/13/2019 at 9:01 Approved by: Angel Anderson M.D. on 02/13/2019 at 9:03
--- NOTE | 2019-02-13 07:23 | PC.NURSE ---
patient is non compliant takes off scd gets up goes to bathroom without calling. a bedside comode was provided she agreed to use it and then gets up sets off bed alarm without calling goes to bathroom says no one came so she went to bathroom said didnt want to use bed side commodemakes excuses to do what she wants and not do what she agreed to O2 hose was made long enough to go to bathroom she removes it to go we put it on she takes it off when we leave room
[2019-02-13] MEDS: LABETALOL 100 MG TABLET 200 MG PO ×2 (10:42→20:23)
[2019-02-13] MEDS: CODEINE/GUAIFENESIN LIQUID 5ML UDC 10 ML PO (11:15)
[2019-02-13] MEDS: HEPARIN 5,000 UNIT/ML VIAL 5000 UNIT SUBCUT ×2 (11:16→20:23)
[2019-02-13] MEDS: BISACODYL 5 MG TABLET 10 MG PO (11:16)
[2019-02-13] MEDS: ASPIRIN 81 MG CHEW TAB PO (11:16)
--- NOTE | 2019-02-13 11:22 | PM.PN.1 ---
Subjective Subjective Date Patient Seen: 02/13/19 Time Patient Seen: 08:00 Interval history: Rose Ramirez is a 58-year-old [place] female with a past medical history significant for medication non-compliance, hypertension, hyperlipidemia, and diabetes mellitus type II, non insulin using who was admitted for hypertensive emergency and has continued to be admitted for acute renal failure. She was aggressively diuresed yesterday with 80 mg IV Lasix b.i.d., her creatinine improved slightly today to 3.5 and clinically she appears improved. She had a repeat chest x-ray which showed worsening effusion but we will attempt to remove this fluid via diuresis rather than a thoracentesis. Exam Vital Signs (past 8 hours): - 02/13/19 03:25 02/13/19 03:45 02/13/19 04:23 Temperature Pulse Rate 74 Respiratory Rate Blood Pressure 188/92 H 188/92 H Pulse Oximetry 86 L 02/13/19 04:24 02/13/19 05:00 02/13/19 08:00 Temperature 98.7 F Pulse Rate 75 Respiratory Rate 16 Blood Pressure 153/86 H Pulse Oximetry 92 92 96 02/13/19 09:50 02/13/19 10:42 Temperature Pulse Rate 78 Respiratory Rate Blood Pressure 151/77 H Pulse Oximetry 95 Fraction of Inspired Oxygen 28 Oxygen Delivery Method Nasal Cannula Oxygen Flow Rate 2 Narrative Exam Narrative: GENERAL APPEARANCE: Chronically ill appearing, no apparent distress, appears mildly fatigued. SKIN: Inspection of the skin reveals no rashes, ulcerations or petechiae. HEENT: The sclerae were anicteric and conjunctivae were pink and moist. Extraocular movements were intact and pupils were equal, round with normal accommodation. External inspection of the ears and nose showed no scars, lesions, or masses. Lips, teeth, and gums showed normal mucosa. The oral mucosa, hard and soft palate, tongue and posterior pharynx were unremarkable. NECK: Supple and symmetric. There was no thyroid enlargement, and no tenderness, or masses were felt. CHEST: Normal AP diameter and normal contour without any kyphoscoliosis. LUNGS: Diminished breath sounds bilateral lung bases with rales to mid lung bilaterally. CARDIOVASCULAR: There was a regular rate and rhythm without any murmurs, gallops, rubs. Peripheral pulses were 2+ and symmetric. ABDOMEN: Soft and nontender with normal bowel sounds. No ascites was noted. MUSCULOSKELETAL: There was no tenderness or effusions noted. Muscle strength and tone were normal. EXTREMITIES: No cyanosis, clubbing. Minimal peripheral edema. NEUROLOGIC: Alert and oriented x 3. Normal affect. Strength is +5/5 in the Upper Extremities and Lower Extremities Bilaterally. Sensation to touch was normal. Objective Labs Result Diagrams: 02/10/19 04:35 02/13/19 06:05 Labs: Laboratory Results - last 24 hr 02/13/19 06:05 Sodium 138 Potassium 3.8 Chloride 106 Carbon Dioxide 25 BUN 45 H Creatinine 3.50 H Estimated GFR 13.5 L BUN/Creatinine Ratio 12.9 Glucose 136 H Calcium 8.0 L Phosphorus 4.9 H Magnesium 1.7 Assessment & Plan Assessment & Plan narrative: Rose Ramirez is a 58-year-old [place] female with a past medical history significant for medication non-compliance, hypertension, hyperlipidemia, and diabetes mellitus type II, non insulin using who was admitted for hypertensive urgency, respiratory failure from volume overload, and has continued to be admitted for acute renal failure which now is improved with more aggressive diuresis. 1. Acute hypoxic respiratory failure. Patient presented with hypertensive urgency and chronic kidney disease. She was given IV hydration initially and has since developed bilateral effusions. Attempted to remove fluid with Lasix however she developed worsening renal insufficiency, Lasix was then held and patient had thoracenteis to remove fluid. After speaking with the on-call supervisor frame sample and pattern she recommended more aggressive diuresis which appears to have helped. Her chest XR showed worsening effusion compared to post-thoracentesis, which is expected. Will attempt to remove fluid with diuresis rather than thoracentesis. If repeat thoracentesis is necessary will send for fluid studies. - Lasix IV 80 mg BID today - follow Cr - oxygen as needed 2. Acute kidney injury in setting of Chronic kidney disease stage 3, present on admission. Cr peaked at 4 yesterday and improved to 3.5 with diuresis today. Sent additional workup per initial notes from admitting provider. Hep B and C, HIV, SPEP with immunofixation, and DAT which are pending. Discussed with on-call supervisor frame sample and pattern Dr. Haynes who recommended aggressive diuresis for overload. - lasix as noted above - continue to follow cr 3. Hypertensive urgency. Resolved. Patient's blood pressure has improved on labetalol 200 mg TID. Amlodipine was restarted as blood pressures were increasing slightly. Lasix as noted above. 4. Type 2 diabetes, suboptimal control. Lantus 15 units. Will continue current dosing. 5. Iron deficiency anemia patient received Venofer. Will continue oral iron 6. Hyperlipidemia, continue statin 7. Transaminitis, present on admission now resolved. Code: Full DVT Quality VTE Deep Vein Thrombosis/Pulmonary Embolism Present on Admission: No
[2019-02-13] MEDS: INSULIN ASPART 100 UNIT/ML INSULN PEN SUBCUT ×2 (11:50→20:29)
--- NOTE | 2019-02-13 15:29 | PC.NURSE ---
Addendum entered by Ania Howell R.N. 02/13/19 15:47: Morning dose of Novolog not administered this morning due to patient being off floor at that time; lunch dose administered with 4 units for CBG of 225 Original Note: Pt notes improved sense of well-being after showering; O2 2L=94%, patient denies nausea, SOB and dizziness; eating yogurt and portions of lunch, hydration good; LS diminished bilaterally to bases; BP at 1450 is 140/80; Tele SR; patient using call light, as needed;
[2019-02-13] MEDS: ROSUVASTATIN 10 MG TABLET 5 MG PO (20:24)
[2019-02-13] MEDS: INSULIN GLARGINE 100 UNIT/ML 3ML PEN 10 UNIT SUBCUT (20:31)
--- NOTE | 2019-02-13 22:30 | PC.NURSE ---
Encourage patient to ambulate. Slight fever this shift of 99.2
[2019-02-14] VITALS (17 sets, daily range): BP systolic 146–183; BP diastolic 75–91; PULSE 67–75; RESP 16; TEMP 36.4–37.3; O2SAT 83–97
[2019-02-14] MEDS: SODIUM CHLORIDE 0.9% FLUSH 10 ML IV ×4 (03:04→23:35)
[2019-02-14 07:05] LABS: BUN Creatinine Ratio 16.5 (6-22); Blood Urea Nitrogen 51 mg/dL (7-17); Calcium 8.2 mg/dL (8.4-10.2); Carbon Dioxide 27 mmol/L (22-32); Chloride 104 mmol/L (98-107); Estimated Glomerular Filt Rate 15.5 mL/min (>60); Glucose 136 mg/dL (70-100); HEMOLYSIS < 15 (0-50); Magnesium 1.6 mg/dL (1.6-2.3); Phosphorous 4.5 mg/dL (2.5-4.5); Potassium 3.6 mmol/L (3.4-5.1); Sodium 138 mmol/L (137-145)
[2019-02-14] MEDS: LABETALOL 100 MG TABLET 200 MG PO ×2 (09:42→21:06)
[2019-02-14] MEDS: ASPIRIN 81 MG CHEW TAB PO (09:43)
[2019-02-14] MEDS: HEPARIN 5,000 UNIT/ML VIAL 5000 UNIT SUBCUT ×2 (09:47→21:04)
[2019-02-14] MEDS: AMLODIPINE 5 MG TABLET PO (09:47)
--- NOTE | 2019-02-14 12:03 | P.PN_ITS ---
Subjective Subjective Date Patient Seen: 02/14/19 Time Patient Seen: 08:25 Interval history: Rose Ramirez is a 58-year-old [place] female with a past medical history significant for medication non-compliance, hypertension, hyperlipidemia, and diabetes mellitus type II, non insulin using who was admitted for hypertensive emergency and has continued to be admitted for acute renal failure. She was aggressively diuresed yesterday with 80 mg IV Lasix b.i.d., her creatinine improved slightly today to 3.1 and clinically she appears improved. She has improved dyspnea Exam Vital Signs (past 8 hours): - 02/14/19 04:35 02/14/19 07:45 02/14/19 08:19 Temperature 98.1 F Pulse Rate 71 Respiratory Rate 16 Blood Pressure 183/91 H Pulse Oximetry 94 94 91 02/14/19 09:13 02/14/19 09:42 Temperature Pulse Rate 75 Respiratory Rate Blood Pressure Pulse Oximetry 94 Fraction of Inspired Oxygen 24 Oxygen Delivery Method Nasal Cannula Oxygen Flow Rate 1 Narrative Exam Narrative: GENERAL APPEARANCE: Chronically ill appearing, no apparent distress, appears mildly fatigued. SKIN: Inspection of the skin reveals no rashes, ulcerations or petechiae. HEENT: The sclerae were anicteric and conjunctivae were pink and moist. Extraocular movements were intact and pupils were equal, round with normal accommodation. External inspection of the ears and nose showed no scars, lesi ons, or masses. Lips, teeth, and gums showed normal mucosa. The oral mucosa, hard and soft palate, tongue and posterior pharynx were unremarkable. NECK: Supple and symmetric. There was no thyroid enlargement, and no tenderness, or masses were felt. CHEST: Normal AP diameter and normal contour without any kyphoscoliosis. LUNGS: Diminished breath sounds bilateral lung bases with rales to mid lung bi laterally. CARDIOVASCULAR: There was a regular rate and rhythm without any murmurs, gallops, rubs. Peripheral pulses were 2+ and symmetric. ABDOMEN: Soft and nontender with normal bowel sounds. No ascites was noted. MUSCULOSKELETAL: There was no tenderness or effusions noted. Muscle strength and tone were normal. EXTREMITIES: No cyanosis, clubbing. Minimal peripheral edema. NEUROLOGIC: Alert and oriented x 3. Normal affect. Strength is +5/5 in the Upper Extremities and Lower Extremities Bilaterally. Sensation to touch was normal. Objective Labs Result Diagrams: 02/10/19 04:35 02/14/19 06:40 Labs: Laboratory Results - last 24 hr 02/14/19 06:40 Sodium 138 Potassium 3.6 Chloride 104 Carbon Dioxide 27 BUN 51 H Creatinine 3.10 H Estimated GFR 15.5 L BUN/Creatinine Ratio 16.5 Glucose 136 H Calcium 8.2 L Phosphorus 4.5 Magnesium 1.6 Assessment & Plan Assessment & Plan narrative: Rose Ramirez is a 58-year-old [place] female with a past medical history significant for medication non-compliance, hypertension, hyperlipidemia, and diabetes mellitus type II, non insulin using who was admi tted for hypertensive urgency, respiratory failure from volume overload, and has continued to be admitted for acute renal failure which now is improving with more aggressive diuresis. 1. Acute hypoxic respiratory failure. Patient presented with hypertensive urgency and chronic kidney disease. She was given IV hydration initially and has since developed bilateral effusions. Attempted to remove fluid with Lasix however she developed worsening renal insufficiency, Lasix was then held and patient had thoracenteis to remove fluid. After speaking with the on-call student ministries director she recommended more aggressive diuresis which appears to have helped. Her chest XR showed worsening effusion compared to post-thoracentesis, which is expected. Will attempt to remove fluid with diuresis rather than th oracentesis. If repeat thoracentesis is necessary will send for fluid studies. - Continue Lasix IV 80 mg BID - follow Cr - oxygen as needed 2. Acute kidney injury in setting of Chronic kidney disease stage 3, present on admission. Cr peaked at 4 yesterday and improved to 3.1 with aggressive. Sent additional workup per initial notes from admitting provider. Hep B and C, HIV, SPEP with immunofixation, and DAT which are pending. Case was discussed with on- call student ministries director Dr. Haynes. - lasix as noted above - continue to follow cr 3. Hypertensive urgency. Resolved. Patient's blood pressure has improved on labetalol 200 mg TID. Amlodipine was restarted as blood pressures were increasing slightly. Lasix as noted above. 4. Type 2 diabetes, suboptimal control. Lantus 15 units. Will continue current dosing. 5. Iron deficiency anemia patient received Venofer. Will continue oral iron 6. Hyperlipidemia, continue statin 7. Transaminitis, present on admission now resolved. Code: Full DVT: HSQ Dispo: Pending improvement in renal function and respiratory status. Quality VTE Deep Vein Thrombosis/Pulmonary Embolism Present on Admission: No
[2019-02-14] MEDS: INSULIN ASPART 100 UNIT/ML INSULN PEN SUBCUT ×3 (13:04→21:06)
[2019-02-14] MEDS: FUROSEMIDE 100 MG/10 ML VIAL 80 MG IV ×2 (13:05→23:35)
--- NOTE | 2019-02-14 15:25 | PC.NURSE ---
Addendum entered by Carrol Trujillo R.N. 02/15/19 06:50: Correction to e-mar from yesterday: This typewriter aligner actually gave 4 units Novolog (for 1130 dose on 02/14), not 300 units as indicated on e-mar. Unable to correct in e-mar because RN who co-signed with me yesterday is not here today. Original Note: IV site: Patient's IV site in R AC on 02/13. This typewriter aligner spoke with patient about placing a new IV site and she refused stating no I don't want it, I'm already too much of a pincushion. IV site appears WNL, flushed easily without adverse s/sx. IV left in place per patient request.
[2019-02-14 19:34] LABS: Albumin 2.2 g/dL (3.8-4.8); Alpha 1 Globulin 0.4 g/dL (0.2-0.3); Alpha 2 Globulin 0.6 g/dL (0.5-0.9); Beta 1 Globulin 0.3 g/dL (0.4-0.6); Gamma Globulin 0.9 g/dL (0.8-1.7); Protein, Total 4.7 g/dL (6.1-8.1)
[2019-02-14] MEDS: ROSUVASTATIN 10 MG TABLET 5 MG PO (21:05)
[2019-02-14] MEDS: INSULIN GLARGINE 100 UNIT/ML 3ML PEN 10 UNIT SUBCUT (21:06)
[2019-02-14] MEDS: SODIUM CHLORIDE 0.9% 250 ML 21 ML IV (23:35)
[2019-02-15] VITALS (13 sets, daily range): BP systolic 137–162; BP diastolic 69–94; PULSE 67–74; RESP 17–18; TEMP 36.6–36.9; O2SAT 91–97
--- NOTE | 2019-02-15 01:15 | PC.NURSE ---
Addendum entered by Randi Wilson R.N. 02/15/19 06:37: Slept at intervals. O2 sat this morning 91%, SHOPPER aware of need to replace O2 during this shift. Original Note: Patient is alert and oriented. Breath sounds CTA but diminished especially at bases. When asleep and first awakened, RA sat only 83% so placed on oxygen at 1L/min per HFNC with sat increasing to 96% so is now on 0.5L/min and sat while asleep was 92%. HRR with BP of 146/79. Telemetry reading was SR w/1st degree AVB. Denies nausea. BT present and abdomen is soft. Having urinary frequency related to diuretics. Able to turn self in bed. Assisted to bathroom due to generalized weakness but seems steady on her feet. SCD's applied at shift change. Denies pain. Fall risk score is moderate; bed alarm is activated.
[2019-02-15 07:26] LABS: BUN Creatinine Ratio 14.7 (6-22); Blood Urea Nitrogen 50 mg/dL (7-17); Calcium 8.5 mg/dL (8.4-10.2); Carbon Dioxide 28 mmol/L (22-32); Chloride 102 mmol/L (98-107); Estimated Glomerular Filt Rate 13.9 mL/min (>60); Glucose 140 mg/dL (70-100); HEMOLYSIS < 15 (0-50); Magnesium 1.7 mg/dL (1.6-2.3); Phosphorous 5.1 mg/dL (2.5-4.5); Potassium 3.6 mmol/L (3.4-5.1); Sodium 140 mmol/L (137-145)
--- NOTE | 2019-02-15 08:42 | DI.RAD.S_ITS ---
PROCEDURE: XR CHEST 2V INDICATIONS: assess pleural effusion after diuresis TECHNIQUE: 2 views of the chest were acquired. COMPARISON: [facility], CR, XR CHEST 2V, 02/13/2019, 9:19. [facility], CR, XR CHEST 1V, 02/10/2019, 16:41. FINDINGS: Surgical changes and devices: None. Lungs and pleura: Bibasilar hazy and consolidative opacity. Increased pulmonary interstitial markings. Moderate-sized bilateral pleural effusions similar to 02/13/2019. No pneumothorax. Mediastinum: Mediastinal contours mostly obscured but grossly stable. Heart is obscured. Bones and chest wall: No suspicious bony abnormalities. Soft tissues appear unremarkable. IMPRESSION: 1. Similar moderate-sized bilateral pleural effusions. 2. Similar mild fluid overload/CHF. 3. Probable bibasilar compressive atelectasis. Dictated by: García Morrison M.D. on 02/15/2019 at 9:27 Approved by: García Morrison M.D. on 02/15/2019 at 9:31
[2019-02-15] MEDS: ASPIRIN 81 MG CHEW TAB PO (09:55)
[2019-02-15] MEDS: SODIUM CHLORIDE 0.9% FLUSH 10 ML IV ×2 (09:55→21:42)
[2019-02-15] MEDS: INSULIN ASPART 100 UNIT/ML INSULN PEN SUBCUT ×4 (09:56→21:38)
[2019-02-15] MEDS: LABETALOL 100 MG TABLET 200 MG PO ×2 (09:57→21:39)
[2019-02-15] MEDS: FUROSEMIDE 100 MG/10 ML VIAL 80 MG IV ×2 (09:59→17:07)
[2019-02-15] MEDS: HEPARIN 5,000 UNIT/ML VIAL 5000 UNIT SUBCUT ×2 (09:59→21:42)
[2019-02-15] MEDS: AMLODIPINE 5 MG TABLET PO (09:59)
--- NOTE | 2019-02-15 10:50 | PC.NURSE ---
Addendum entered by Carrol Trujillo R.N. 02/15/19 15:37: Late entry: Patient back to room approx. 1430 and they did NOT end up doing her procedure. Settled back into bed and provided with snack per her request. Call light in reach, bed alarm active. Addendum entered by Carrol Trujillo R.N. 02/15/19 13:50: Procedure: Off floor for procedure, copy of orders for fluid culture orders sent w/ tech to give to ultrasound. Original Note: IV site: Patient's IV site in R AC flushes easily and the site appears WNL. Patient denies pain or other complaints with flush. This physician underwriter talked with her again about starting a new IV (current site on 02/13). Discussed potential risks of leaving IV in beyond expiration date, including risk of infection. Patient refused to allow a new IV to be started.
--- NOTE | 2019-02-15 11:57 | DI.US.S_ITS ---
PROCEDURE: US CHEST COMPARISON: [facility], CR, XR CHEST 2V, 02/15/2019, 8:40. [facility], CR, XR CHEST 2V, 02/13/2019, 9:19. INDICATIONS: SOB, R PLUERAL EFFUSION, FLUID EVALUATION FINDINGS: Moderate right and small to moderate left free flowing pleural effusions. IMPRESSION: Bilateral pleural effusions. . Dictated by: Lalo GARCIA Interpreted: Vanessa Mcnair MD on 02/15/2019 at 16:14 Approved by: Vanessa Mcnair M.D. on 02/15/2019 at 17:07
--- NOTE | 2019-02-15 12:02 | P.PN_ITS ---
Subjective Subjective Date Patient Seen: 02/15/19 Time Patient Seen: 08:00 Interval history: Rose Ramirez is a 58-year-old Sudanese female with a past medical history significant for medication non-compliance, hypertension, hyperlipidemia, and diabetes mellitus type II, non insulin using who was admitted for hypertensive emergency and has continued to be admitted for acute renal failure and hypoxemic respiratory failure. She was aggressively diuresed 80 mg IV Lasix b.i.d. over the past few days and clinically she has improved. Overnight she desaturated into the mid 80s on room air, repeat chest x-ray this morning showed persistent right-sided pleural effusion. Her creatinine remained stable around 3-3.5. I have ordered thoracentesis to be done today, with pleural fluid studies to ensure that fluid is indeed transudative. This will also hopefully help with her hypoxemic respiratory failure so that she can have further evaluation outpatient for her kidney disease. Exam Vital Signs (past 8 hours): - 02/15/19 07:40 02/15/19 09:18 02/15/19 09:50 Temperature 98.5 F Pulse Rate 70 73 Respiratory Rate 18 18 Blood Pressure 162/94 H Pulse Oximetry 97 92 97 02/15/19 10:46 Temperature Pulse Rate Respiratory Rate Blood Pressure Pulse Oximetry 95 Fraction of Inspired Oxygen 24 Oxygen Delivery Method Room Air Oxygen Flow Rate 0 Narrative Exam Narrative: GENERAL APPEARANCE: Chronically ill appearing, no apparent distress, appears mildly fatigued. SKIN: Inspection of the skin reveals no rashes, ulcerations or petechiae. HEENT: The sclerae were anicteric and conjunctivae were pink and moist. Extraocular movements were intact and pupils were equal, round with normal accommodation. External inspection of the ears and nose showed no scars, lesions, or masses. Lips, teeth, and gums showed normal mucosa. The oral mucosa, hard and soft palate, tongue and posterior pharynx were unremarkable. NECK: Supple and symmetric. There was no thyroid enlargement, and no tenderness, or masses were felt. CHEST: Normal AP diameter and normal contour without any kyphoscoliosis. LUNGS: Diminished breath sounds bilateral lung bases with rales to mid lung bilaterally. CARDIOVASCULAR: There was a regular rate and rhythm without any murmurs, gallops, rubs. Peripheral pulses were 2+ and symmetric. ABDOMEN: Soft and nontender with normal bowel sounds. No ascites was noted. MUSCULOSKELETAL: There was no tenderness or effusions noted. Muscle strength and tone were normal. EXTREMITIES: No cyanosis, clubbing. Minimal peripheral edema. NEUROLOGIC: Alert and oriented x 3. Normal affect. Strength is +5/5 in the Upper Extremities and Lower Extremities Bilaterally. Sensation to touch was normal. Objective Labs Result Diagrams: 02/10/19 04:35 02/15/19 06:47 Labs: Laboratory Results - last 24 hr 02/12/19 02/15/19 06:19 06:47 Sodium 140 Potassium 3.6 Chloride 102 Carbon Dioxide 28 BUN 50 H Creatinine 3.40 H Estimated GFR 13.9 L BUN/Creatinine Ratio 14.7 Glucose 140 H Calcium 8.5 Phosphorus 5.1 H Magnesium 1.7 Serum Total Protein 4.7 L Albumin 2.2 L Llgys-1-Xyrokdiwf 0.4 H Lrmie-2-Obonbthxh 0.6 Vuia-8-Zaklcoat 0.3 L Prri-2-Nseznuod 0.3 Gamma Globulins 0.9 Abnorm Protein Band 1 Not Reportable Abnorm Protein Band 2 Not Reportable Abn Gamma Band 3 Serum Not Reportable PEP Comment See note Assessment & Plan Assessment & Plan narrative: Rose Ramirez is a 58-year-old Sudanese female with a past medical history significant for medication non-compliance, hypertension, hyperlipidemia, and diabetes mellitus type II, non insulin using who was admitted for hypertensive urgency, respiratory failure from volume overload, and has continued to be admitted for acute renal failure which has now stabilized around 3. She still desaturates on room air, and has a persistent right-sided pleural effusion. I have ordered a thoracentesis for today to ensure that this fluid is transudative, and hopefully help with her hypoxic respiratory failure. 1. Acute hypoxic respiratory failure. Patient presented with hypertensive urgency and chronic kidney disease. She was given IV hydration initially and has since developed bilateral effusions. Attempted to remove fluid with Lasix however she developed worsening renal insufficiency, Lasix was then held and patient had thoracenteis to remove fluid. After speaking with the on-call sales route driver helper she recommended more aggressive diuresis which appeared to help wit h improving Cr and improvement clinically. Her chest XR today showed stable size of her pleural effusion. I will continue her IV diuresis today given no apparent effect and kidney function in hopes to have her clinically improve prior to discharge. It is unclear at this time if her volume overload is secondary to her renal disease or decompensated diastolic heart failure. - Continue Lasix IV 80 mg BID - follow Cr - oxygen as needed 2. Acute kidney injury in setting of Chronic kidney disease stage 3, present on admission. Cr peaked at 4 yesterday and improved to 3.1 with aggressive diuresis however it now appears to have stabilized between 3 and 3.5. Sent additional workup per initial notes from admitting provider. Hep B surface Ag negative, rest of panel pending. Hep C negative, HIV negative. SPEP with immunofixation unremarkable, DAT pending. UPC is 10 consistent with neprhotic range proteinuria. - lasix as noted above - continue to follow cr 3. Chronic Diastolic heart failure - TTE this admission showing grade II diastolic dysfunction. - continue diuresis as noted above. 4. Hypertensive urgency. Resolved. Patient's blood pressure has improved on labetalol 200 mg TID. Amlodipine was restarted as blood pressures were increasing slightly. Lasix as noted above. 5. Type 2 diabetes, suboptimal control. Lantus 15 units. Will continue current dosing. 6. Iron deficiency anemia patient received Venofer. Will continue oral iron 7. Hyperlipidemia, continue statin 8. Transaminitis, present on admission now resolved. Code: Full DVT: HSQ Dispo: Pending improvement in renal function and respiratory status. Quality VTE Deep Vein Thrombosis/Pulmonary Embolism Present on Admission: No
[2019-02-15 13:49] LABS: ANA Screen, IFA NEGATIVE (NEGATIVE)
[2019-02-15 15:45] LABS: Hepatitis B Core Antibody Nonreactive (Nonreactive); Hepatitis B Surf Ab Qualitativ Reactive (Nonreactive)
[2019-02-15] MEDS: INSULIN GLARGINE 100 UNIT/ML 3ML PEN 10 UNIT SUBCUT (21:39)
[2019-02-15] MEDS: ROSUVASTATIN 10 MG TABLET 5 MG PO (21:41)
--- NOTE | 2019-02-15 23:17 | PC.NURSE ---
Evening notes: Rose has been Ox3, VS stable tonight. IV Lasix given earlier, since then she has had 900 ml clear dilute yellow urine output. SBA to BR, denies dizziness or pain. Sat in chair for meal, then ambulated in hallways with her standing by, walking twice around [facility], gait steady. Denied SOB with ambulation, RA oxygen 94-96% LS diminished to all posterior mccoy, I instructed use of IS 10 x's/hour as well as deep breathing exercises. I also instructed her to try to ambulate outside of room in hallways 3 x's/day. Remains on fluid restriction, allotments changed to allow more fluid intake during the day; Eeky=172, Hfoyvpvl=462 and Wfnkn=514. Fall precautions in place, pt reminded to call if has any needs/concerns.
[2019-02-16 02:30] VITALS: BP 157/88; PULSE 73; RESP 18; TEMP 37; O2SAT 94
--- NOTE | 2019-02-16 03:22 | PC.NURSE ---
Patient is alert and oriented but has very flat affect and converses minimally with staff. Unhappy with not being allowed to have multiple food items: sandwich + yogurt + hot cocoa but CBG 189. Did offer sugar free snacks as well as sugar free hot cocoa but declines. Breath sounds very diminished throughout and patient not taking very deep breaths even when asked to do so; RA sat 94%. HRR and was SR on telemetry reading. BP elevated but stable at 157/88. Denies nausea not yet. BT present and abdomen is soft. Denies dysuria, frequency or urgency. Able to move self in bed and provided SBA when up to bathroom; appears steady on feet. Denies pain. Refusing SCD's despite information provided re: DVT prevention so reminded to ankle wave. Continues on fluid restriction. Fall risk score is moderate; bed alarm is activated.
[2019-02-16 06:40] VITALS: BP 153/81; PULSE 75; RESP 17; TEMP 36.9; O2SAT 92
[2019-02-16 07:30] LABS: BUN Creatinine Ratio 16.5 (6-22); Blood Urea Nitrogen 51 mg/dL (7-17); Calcium 8.5 mg/dL (8.4-10.2); Carbon Dioxide 31 mmol/L (22-32); Chloride 102 mmol/L (98-107); Estimated Glomerular Filt Rate 15.5 mL/min (>60); Glucose 153 mg/dL (70-100); HEMOLYSIS < 15 (0-50); Magnesium 1.7 mg/dL (1.6-2.3); Potassium 3.6 mmol/L (3.4-5.1); Sodium 139 mmol/L (137-145)
[2019-02-16 07:40] VITALS: BP 163/92; PULSE 70; RESP 14; TEMP 36.6; O2SAT 94
[2019-02-16] MEDS: FERROUS GLUCONATE 324 MG TABLET PO (08:09)
[2019-02-16] MEDS: LABETALOL 100 MG TABLET 200 MG PO (08:09)
[2019-02-16] MEDS: ASPIRIN 81 MG CHEW TAB PO (08:09)
[2019-02-16] MEDS: AMLODIPINE 5 MG TABLET PO (08:09)
[2019-02-16] MEDS: ASCORBIC ACID 500 MG TABLET PO (08:09)
[2019-02-16] MEDS: INSULIN ASPART 100 UNIT/ML INSULN PEN SUBCUT ×2 (08:10→12:08)
[2019-02-16] MEDS: SODIUM CHLORIDE 0.9% FLUSH 10 ML IV (08:10)
[2019-02-16] MEDS: HEPARIN 5,000 UNIT/ML VIAL 5000 UNIT SUBCUT (08:14)
[2019-02-16] MEDS: FUROSEMIDE 40 MG TABLET 80 MG PO (08:16)
[2019-02-16 08:22] LABS: Add Manual Diff / Slide Review NO; Basophils Absolute Auto 100 /uL (0-100); Basophils Percent Auto 1.5 % (0-2); Eosinophils Absolute Auto 200 /uL (0-450); Eosinophils Percent Auto 2.7 % (2-4); Hematocrit 26.5 % (36-46); Hemoglobin 8.8 g/dL (12.0-16.0); Lymphocytes Absolute Auto 1500 /uL (1100-4500); Lymphocytes Percent Auto 20.7 % (25-40); Mean Corpuscular HGB Conc 33.2 % (30-36); Mean Corpuscular Hemoglobin 27.8 PG (26-34); Mean Corpuscular Volume 83.9 fL (80-100); Monocytes Absolute Auto 500 /uL (0-900); Monocytes Percent Auto 6.9 % (3-14); Neutrophils Absolute Auto 4800 /uL (1500-7000); Neutrophils Percent Auto 68.2 % (50-75); Platelet Count 292 X10^3/uL (150-400); Red Blood Cell Count 3.16 X10^6/uL (4.0-5.2); Red Cell Distribution Width 14.7 % (11.6-14.8)
--- NOTE | 2019-02-16 08:33 | PC.NURSE ---
Addendum entered by Melanie Do R.N. 02/16/19 15:53: Patient given extensive education regarding medications and follow up care after this hospital stay. Patient verbalizes understanding but feelings of being overwhelmed. This nurse reassured patient that her medications were a vital component to her health and future. Patient understands and has made a follow up appointment with her PCP for tomorrow. Denies further needs at this time. Original Note: Doctor in to see patient. Patient A/O x4. Up to chair for breakfast. Patient refuses stool softener at this time. Reports last bowel movement 02/15. Patient denies pain, SOB, or chest pain at this time. Call light and belongings in reach. Chair alarm on.
[2019-02-16 08:50] VITALS: PULSE 70; RESP 16; O2SAT 96
--- NOTE | 2019-02-16 10:01 | P.DS_ITS ---
History of Present Illness History of Present Illness Date Patient Seen: 02/06/19 Chief complaint: doctor wants her heart observed Narrative: Written by Ned SOMMERS: The patient is a 58-year-old [place] female who presented earlier in the day upon recommendation of the outpatient clinic. Patient was being acutely seen for cough, however she was noted to have elevated blood pressure and was asked to seek further evaluation in the ED. Patient is known to have a history of HTN and IDDM 2T (both diagnosed between 2001 and 2004). Patient admits to both chronic conditions to be poorly controlled. She specifically notes difficulty remembering to take the medication as well as intolerance to several medications prescribed before. She describes being demoralized when seeking care for the aforementioned ailments and being put off by scornful and intimidating approach from the provider. Patient states that she has not taken antihypertensives or insulin since August 2018. BP previously managed with lisinopril. She has tried metformin and other oral anti glycemics with reported intolerance. Later was placed on Lantus. Patient reports having a week long bout of diarrhea (unable to quantify), 2-3 weeks ago. There was no associated nausea or vomiting. Diarrhea self-resolved. No fever or chills at that time. She has nto traveled, however her does travel often and symptoms started after he returned from one of the trips. She does have exposure to school aged child, however there has not been known illness. No other ill contacts. The patient did travel to [facility] in , potentially had some exposure to ill contacts. Denied prior history of TB and TB like symptoms. In the past week patient has developed non-productive cough. Cough is described as spasmodic, persistent and causes her to dry heavy. The past week has also developed bilateral lower extremity edema that did not improve with extremity elevation and rest. Patient denies starting any new medications. She has been taking Mucinex gvow-qox-rvcrijs. She has not had any headache, change in vision, dyspnea (at rest and with exertion), chest pain, palpitations, dizziness, lightheadedness, syncopal events, abdominal pain, gastrointestinal distress, dysuria, or symptoms of bleeding. Does not endorse particular sense of fatigue. Denies myopathy myal any. No new rashes. Denies polydipsia, polyuria, and polyphasia; however, has had unintentional weight loss of 10-15 lb since August of 2018. Denies change in pattern of micturition. Presentation to the ED patient was noted to have blood pressure of 231/113 mmHg. Patient was asymptomatic. Patient denies history of heart disease, cerebrovascular events, kidney disease, or thrombosis. Discharge Providers Provider Date of admission: 02/06/19 18:44 Discharge Date: 02/16/19 Consults: 02/06/19 23:32 Consult to Respiratory Therapy Evaluate & Treat Comment: Physician Instructions: Evaluate and treat Discharge provider: Milagros Max DO Summary Hospital Course Discharge Diagnosis: 1. Acute hypoxemic respiratory failure. 2. Acute kidney injury in setting of chronic kidney disease stage III and nephrotic syndrome, present on admission. 3. Newly diagnosed diastolic CHF, present on admission. Active. 4. Hypertensive emergency in setting of uncontrolled hypertension, acute, present on admission. Acute hypertensive emergency resolved. 5. Diabetes mellitus type II, non-insulin using, chronic, present on admission. Active 6. Normocytic normochromic anemia, suspected to be chronic condition, present on admission 7. Hyperlipidemia, chronic, present on admission. Stable. 8. Acute transaminitis, present on admission. Resolved. 9. Medical noncompliance, chronic, present on admission. Stable. Hospital Course: Rose Ramirez is a 58-year-old Romanian female with a past medical history significant for medication non-compliance, hypertension, hyperlipidemia, and diabetes mellitus type II, non-insulin using who was sent from PCP to ED but didn?t arrive until 2 days later in which she was admitted for hypertensive emergency and acute kidney injury. 1. Acute hypoxemic respiratory failure, present on admission. Resolved. -Patient presented with hypertensive urgency and chronic kidney disease. She was given IV hydration initially and subsequently developed worsening bilateral effusions. She then received diuresis with Lasix but developed worsening renal insufficiency. Lasix was then held and the patient had thoracenteis to remove fluid in which pleural fluid studies were unfortunately not sent. After multiple providers speaking with the on-call special weapons unit officer at [facility] it was recommended to be more aggressive with diuresis which improved creatinine and patient's hypoxemic respiratory failure resolved. Repeat chest XR demonstrate stability of small bilateral pleural effusions. It is unclear at this time if her volume overload is secondary to her renal disease or decompensated diastolic heart failure but likely both are contributing. -Continued furosemide 80 mg IV twice daily with subtle improvement/stabilization of renal function and transition to furosemide 80 mg PO twice daily. -Continued supplemental oxygen as necessary to keep oxygen saturation 88-92%. 2. Acute kidney injury in setting of chronic kidney disease stage III and nephrotic syndrome, present on admission. -Initial Cr 2.4 on admission. Baseline unknown. Creatinine peaked at 4.0 and has improved to 3.1 with aggressive diuresis, however, it now appears to have stabilized between 3-3.5. Complete renal work-up negative including hep B core antibody negative, hep B surface antigen negative, hep B surface antibody positive indicative vaccination and immunity, hep C negative, HIV negative, DAT negative and SPEP with immunofixation unremarkable. UPC is 10 consistent with neprhotic range proteinuria and patient will likely need a renal biopsy in the future to determine etiology but likely due to diabetes. -Continued diuresis as above. -Continued to avoid nephrotoxic agents and optimize renal perfusion. -Continued to monitor renal function daily. 3. Newly diagnosed diastolic CHF, present on admission. Active. -Patient presented with non-productive cough and lower extremity edema with bilateral pleural effusions on chest x-ray. No associated fever or chills. No infectious signs. Respiratory viral PCR negative. -Echocardiogram demonstrated LV normal in size with EF low normal at 50-55%, no focal wall motion abnormalities. There is probable evidence for grade II LV diastolic dysfunction or pseudonormalization, consistent with increased LV filling pressures, RV normal in size and function, RVSP 42 mmHg based on an estimated right atrial pressure of 15 mm Hg, left atrium is severely dilated and right atrial size is normal, mild mitral regurgitation and no other significant valvular heart disease, aortic root is normal size, trace pericardial effusion that is circumferential, and large-sized bilateral pleural effusions noted. -Continued to monitor electrolytes closely and replete as needed. Goal K+ 4.0 and Mg+ 2.0. -Continued strict I &O's, daily weights. -Continued diuresis as noted above. 4. Hypertensive emergency in setting of uncontrolled hypertension, acute, present on admission. Acute hypertensive emergency resolved. -Initial BP on presentation was 231/113 with organ dysfunction of acute kidney injury on likely chronic kidney disease and mild liver injury. Patient has not taken any anti-hypertensive since August due to reported GI side effects and resultant medical non-compliance. -Serial troponin is within normal limits 0.016 and 0.023. Denied CP or ACS symptoms. -EKG demonstrated sinus rhythm with non-specific T wave abnormality and no acute ischemic changes. -Chest x-ray demonstrated [id number] bilateral pleural effusions with bibasilar atelectasis and hypoventilatory changes. -CT brain without contrast was negative for acute intracranial abnormalities. -Risk stratified due to high risk for cardiovascular anomalies and neurological events with hemoglobin A1C 8.3% and fasting lipid panel which demonstrated hyperlipidemia. -Received 325 mg ASA in ED. Continue 81 mg ASA daily. -Received 0.5 inch paste of nitro paste and labetalol 10 mg IV x 1 in ED. Continued amlodipine 5 mg daily and labetalol 200 mg three times daily. Continued Lasix as above. -Echocardiogram as below. -The patient would benefit from an outpatient sleep study. 5. Diabetes mellitus type II, non-insulin using, chronic, present on admission. Active -History of poorly controlled DM without prior known complications. -Hemoglobin A1C 8.3% indicative of poor glycemic control. -Continued [facility] blood glucose checks and low dose correctional scale insulin. -Continued Lantus 10 units daily at bedtime. Provided insulin teaching and discharged with basal insulin Lantus 10 units daily at bedtime. -Urine protein/creatinine ratio is 10 indicative of nephrotic syndrome as above. 6. Normocytic normochromic anemia, suspected to be chronic condition, present on admission -Initial hemoglobin 10.6. Patient is asymptomatic. No overt signs of bleeding. Not on AC or anti-thrombotic agents. Denies NSAID use. -Multi-factorial and secondary to iron deficiency and diminished erythropoietin in the setting of kidney disease. -Iron studies demonstrated iron deficiency anemia. Received venofer and continued ferrous gluconate 324 mg and ascorbic acid 500 mg daily. 7. Hyperlipidemia, chronic, present on admission. Stable. -Continued rosuvastatin 5 mg daily at bedtime. 8. Acute transaminitis, present on admission. Resolved. 9. Medical noncompliance, chronic, present on admission. Stable. -Reiterated the importance of continuing all prescribed medications and following up with both PCP at the [facility] and Nephrology next week. Exam Vital Signs (past 8 hours): - 02/16/19 02:30 02/16/19 06:40 02/16/19 07:40 Temperature 98.6 F 98.5 F 97.9 F Pulse Rate 73 75 70 Respiratory Rate 18 17 14 Blood Pressure 157/88 H 153/81 H 163/92 H Pulse Oximetry 94 92 94 02/16/19 08:50 Temperature Pulse Rate 70 Respiratory Rate 16 Blood Pressure Pulse Oximetry 96 Fraction of Inspired Oxygen 21 Oxygen Delivery Method Room Air Oxygen Flow Rate 0 Narrative Exam Narrative: General: Middle-aged female sitting in bed and in no acute distress, well- developed, well-nourished, mildly withdrawn with flat affect, otherwise appropriately interactive. HEENT: Normocephalic, atraumatic. External ears without defect. Pupils equal, round, and reactive to light. Anicteric sclerae, moist conjunctivae, and no lid lag. Oropharynx free of erythema and cobble stoning with moist mucosa. Neck: Supple with full range of motion. No jugular venous distension. No bruits. No lymphadenopathy or thyromegaly. Cardiovascular: Regular rate and rhythm without murmurs, rubs, or gallops appreciated. Pulmonary: Clear to auscultation bilaterally but diminished at bases. No crac kles, wheezes or rhonchi. Normal respiratory effort with no use of accessory muscles. Abdomen: Soft, bowel sounds present, nontender, nondistended. No hepatosplenomegaly or masses appreciated. Extremities: No clubbing, cyanosis, or edema. Skin: Normal temperature, turgor, and texture; no rash, ulcers, or subcutaneous nodules appreciated. Neurological: Cranial nerves grossly intact. Psychiatric: Normal mood and flat affect. Alert and oriented to person, place, and time. Objective Labs Result Diagrams: 02/16/19 08:08 02/16/19 06:51 Labs: Laboratory Results - last 24 hr 02/12/19 02/12/19 02/12/19 06:19 06:19 06:19 WBC RBC Hgb Hct MCV MCH MCHC RDW Plt Count Neut % (Auto) Lymph % (Auto) [place] % (Auto) Eos % (Auto) Baso % (Auto) Neut # (Auto) Lymph # (Auto) [place] # (Auto) Eos # (Auto) Baso # (Auto) Sodium Potassium Chloride Carbon Dioxide BUN Creatinine Estimated GFR BUN/Creatinine Ratio Glucose Calcium Phosphorus Magnesium Anti-Nuclear Antibody Negative Hep Bs Antibody Reactive A Hep B Core Total Ab Nonreactive 02/16/19 02/16/19 06:51 08:08 WBC 7.0 RBC 3.16 L Hgb 8.8 L Hct 26.5 L MCV 83.9 MCH 27.8 MCHC 33.2 RDW 14.7 Plt Count 292 Neut % (Auto) 68.2 Lymph % (Auto) 20.7 L [place] % (Auto) 6.9 Eos % (Auto) 2.7 Baso % (Auto) 1.5 Neut # (Auto) 4800 Lymph # (Auto) 1500 [place] # (Auto) 500 Eos # (Auto) 200 Baso # (Auto) 100 Sodium 139 Potassium 3.6 Chloride 102 Carbon Dioxide 31 BUN 51 H Creatinine 3.10 H Estimated GFR 15.5 L BUN/Creatinine Ratio 16.5 Glucose 153 H Calcium 8.5 Phosphorus 5.0 H Magnesium 1.7 Anti-Nuclear Antibody Hep Bs Antibody Hep B Core Total Ab Discharge Plan Discharge Plan Patient Disposition: Home Discharge comment: You are being discharged home. Please follow-up with your primary care physician by the end of the week 02/18. You have been prescribed several medications to control your blood pressure including amlodipine 10 mg daily, furosemide 80 mg twice daily (8 AM and 5 PM), and labetolol 200 mg three times daily (every 8 hours). You were prescribed aspirin 81 mg daily and rosuvastatin 5 mg daily at bedtime to help with your cholesterol. You were prescribed iron (ferrous gluconate) 324 mg daily and vitamin C (ascorbic acid 500 mg daily for your iron deficiency anemia. Iron may be very constipating therefore you were prescribed Colace (stool softner) 100 mg twice daily as needed for constipation. You were prescribed Lantus 10 units injected subcutaneously daily at bedtime for your diabetes. You will be called by Dr. May the kidney specialist (nephrology) office regarding scheduling an appointment for next week. If you do not hear from his office by the end of the week 02/18 please call to make the appointment [phone]. You must take all your medications as prescribed and follow-up with your PCP and nephrology. Discharge Med Rec/Prescriptions Prescriptions: New furosemide 40 mg Tablet 80 mg PO 0800,1700 Qty: 60 RF: 0 ascorbic acid (vitamin C) [Vitamin C] 500 mg Tablet 500 mg PO DAILY Qty: 30 RF: 0 ferrous gluconate 324 mg (38 mg iron) Tablet 324 mg PO DAILY Qty: 30 RF: 0 Lantus Solostar U-100 Insulin 100 unit/mL (3 mL) Insulin Pen 10 unit subcut BEDTIME Qty: 15 RF: 0 labetalol 100 mg Tablet 200 mg PO BID Qty: 180 RF: 0 rosuvastatin 10 mg Tablet 5 mg PO BEDTIME Qty: 30 RF: 0 docusate sodium [DOK] 100 mg Capsule 100 mg PO BID PRN (Reason: Constipation) Qty: 60 RF: 0 aspirin 81 mg tablet,delayed release (DR/EC) 81 mg PO DAILY Qty: 30 RF: 0 amlodipine 10 mg tablet 10 mg PO DAILY Qty: 30 RF: 0 Follow up/Referrals: Vimal May MD [Non-Staff] - (You will receive a phone call regarding scheduling an appointment for next week with the kidney doctor Dr. May. If you have not heard from them by Sunday 02/18 please call [phone] to make an appointment with Dr. May for next week. ) Provider Discharge Instructions Diet: Carb-consistent/Diabetic, Low-fat, Low-sodium, Low-cholesterol and Low- protein/Renal Activity: Activity as tolerated Visit Report/Discharge Packet Instructions: Blood Glucose, How to Check Your Blood Glucose, Insulin Glargine (rDNA origin) Injection Discharges patient from system. Discharge Date/Time: 02/16/19 15:55 Quality VTE Deep Vein Thrombosis/Pulmonary Embolism Present on Admission: No
[2019-02-16 11:05] VITALS: BP 144/81; PULSE 65; RESP 18; TEMP 36.5; O2SAT 95
--- NOTE | 2019-02-16 14:21 | CM.DPC ---
DCP Discharge Home Per MD, pt is medically stable to d/c home today via family POV and follow up appointments recommended. requests support with helping pt to have a scheduled PCP appointment with her MD on the [facility] as pt has hx of noncompliance with recommendations and medications. SW attempted to call [facility] corporate scheduler at [phone] for family medicine scheduling and [facility] requires both pt and spouse social security numbers and pt will need to call herself or have her spouse call to schedule. Pt does not meet criteria for for community coordination and care and pt does not meet criteria for [facility] since she is not on [facility] which could help with follow through and medical coordination of care. Plan: Patient to likely d/c home via family POV this evening with hopeful follow through with recommended outpt appointments for ongoing medical complexities. Dorys Astorga MSW
--- NOTE | 2019-02-16 15:53 | PC.NURSE ---
Patient's is here to pick her up. Patient states she has no further questions or concerns at this time and has a follow up scheduled with her PCP for tomorrow. Patient escorted out via wheelchair with all belongings by ASSET PROTECTION ASSOCIATE to be discharged to home with .
== END 2019-02-16 15:55 | disposition home or self-care (01) | DRG 304 ==
LOC: ED 17:49 → ICU 02-07 07:47 → AC 02-10 19:32
PROVIDERS: Internal Medicine; Nurse Practitioner Gerontology; Admitting Provider Internal Medicine; Emergency Provider Emergency Medicine; Visit Provider Internal Medicine
DX: I16.0 Hypertensive urgency (principal); I50.31 Acute diastolic (congestive) heart failure; J96.01 Acute respiratory failure with hypoxia; N17.9 Acute kidney failure, unspecified; I13.0 Hypertensive heart and chronic kidney disease with heart failure and stage 1 through stage 4 chronic kidney disease, or unspecified chronic kidney disease; E11.22 Type 2 diabetes mellitus with diabetic chronic kidney disease; N18.3 Chronic kidney disease, stage 3 (moderate); E11.65 Type 2 diabetes mellitus with hyperglycemia; R74.0 Nonspecific elevation of levels of transaminase and lactic acid dehydrogenase [LDH]; T38.3X6A Underdosing of insulin and oral hypoglycemic [antidiabetic] drugs, initial encounter; Z91.128 Patient's intentional underdosing of medication regimen for other reason; D63.1 Anemia in chronic kidney disease; D50.9 Iron deficiency anemia, unspecified; E78.5 Hyperlipidemia, unspecified
CPT/HCPCS: 32555; 36415; 36591; 70450; 71045; 71046; 76604; 76770; 80048; 80053; 80061; 81001; 82550; 82553; 82570; 82962; 83036; 83540; 83550; 83690; 83735; 83880; 84100; 84155; 84156; 84165; 84484; 85025; 85610; 85730; 86038; 86704; 86706; 86803; 87340; 87389; 87633; 87797; 93005; 93306; 94640; 94760; 94762; 96374; 99283; 99285; J1644; J1756; J1940; J2405; J7613

== ENCOUNTER 2024-12-09 04:20 | Emergency (ER) | payer MEDICARE, OTHER, SELFPAY ==
[2019-02-06 18:50] VITALS: BMI 22.8
[2024-12-09] VITALS (20 sets, daily range): BP systolic 151–209; BP diastolic 69–95; PULSE 66–76; RESP 15–19; TEMP 36.4; O2SAT 90–96; BMI 19.9
--- NOTE | 2024-12-09 04:48 | DI.CT.S_ITS ---
PROCEDURE: CT HEAD/BRAIN WO CON INDICATIONS: Hypertension, dialysis pt TECHNIQUE: Noncontrast 4.5 mm thick angled axial sections acquired from the foramen magnum to the vertex, with coronal and sagittal reformats. For radiation dose reduction, the following was used: automated exposure control, adjustment of mA and/or kV according to patient size. COMPARISON: [facility], CT, CT HEAD WITHOUT CONTRAST, 03/01/2024, 5:43. [facility], CT, CT HEAD/BRAIN WO CON, 02/06/2019, 17:48. FINDINGS: Image quality: Diagnostic. CSF spaces: Basal cisterns are patent. No extra-axial fluid collections. The ventricles are symmetric in size and shape. Brain: No intracranial bleeds or mass effect. There is cerebral volume loss, with resultant ventricular and sulcal prominence. There are moderate periventricular and deep white matter chronic small vessel ischemic changes. There is intracranial internal carotid artery atherosclerosis. Stable appearance of prominent pituitary gland. Skull and face: Calvarium and visualized facial bones appear intact, without suspicious lesions. Sinuses: Mild right maxillary sinus mucosal thickening. Stable postsurgical changes of the bilateral maxillary sinuses. Remainder of the paranasal sinuses appear clear. Mastoid air cells are well-aerated. IMPRESSION: 1. CT head without acute intracranial abnormalities or acute calvarial fractures. 2. Age-related senescent changes and sequela of chronic small vessel ischemic disease. 3. 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 If not already accomplished, consider further evaluation with pituitary protocol MRI. No significant discrepancy with the shift coordinator radiology preliminary report. Dictated by: Sigifredo Zuniga M.D. on 12/09/2024 at 7:02 Approved by: Sigifredo Zuniga M.D. on 12/09/2024 at 7:07
--- NOTE | 2024-12-09 04:49 | DI.RAD.S_ITS ---
PROCEDURE: XR CHEST 1V INDICATIONS: Hypertension, leaky dialysis port TECHNIQUE: One view of the chest was acquired. COMPARISON: [facility], CR, XR CHEST 1 VIEW, 12/03/2024, 8:22. [facility], CR, XR CHEST 2V, 02/15/2019, 8:40. FINDINGS: Surgical changes and devices: Leadless left pacemaker. Lungs and pleura: No pneumothorax. Moderate bilateral pleural effusions with vascular prominence and perihilar airway thickening. Streaky bibasilar opacities. Mediastinum: Mediastinal contours appear normal. Heart size is mildly enlarged. Bones and chest wall: No suspicious bony lesions. Overlying soft tissues appear unremarkable. IMPRESSION: Cardiomegaly with findings compatible with pulmonary edema/CHF. No significant discrepancy with the manager r d radiology preliminary report. Dictated by: Sigifredo Zuniga M.D. on 12/09/2024 at 7:07 Approved by: Sigifredo Zuniga M.D. on 12/09/2024 at 7:09
[2024-12-09] MEDS: LABETALOL 20 MG/4 ML SYRINGE 10 MG IV (05:31)
[2024-12-09 05:50] LABS: Add Manual Diff / Slide Review NO; Hematocrit 34.6 % (36-46); Hemoglobin 11.3 g/dL (12.0-16.0); Lymphocytes Absolute Auto 1100 /uL (1100-4500); Mean Corpuscular HGB Conc 32.7 % (30-36); Mean Corpuscular Hemoglobin 26.9 PG (26-34); Mean Corpuscular Volume 82.2 fL (80-100); Platelet Count 198 X10^3/uL (150-400)
--- NOTE | 2024-12-09 05:52 | PC.NURSE ---
Pt has fistula in left ac. Starting about midnight with bleeding. from access point from yesterday's dialysis. Spouse had placed pressure dressing on. Upon arrival, dressing saturated with blood. With dressing removed, pt had a slow drip of blood from sight. Placed telfa, multiple 4x4s, and abd pad, wrapped in coban around site.
[2024-12-09 06:00] LABS: Ammonia (NH3) < 9 umol/L (9-30); Lactate (Lactic Acid) 0.5 mmol/L (0.7-2.1)
[2024-12-09 06:01] LABS: Alanine Aminotransferase 23 IU/L (<35); Albumin 4.0 g/dL (3.5-5.0); Albumin Globulin Ratio 1.3 (1.0-2.8); Alkaline Phosphatase 85 U/L (38-126); Blood Urea Nitrogen 19 mg/dL (7-17); Calcium 9.7 mg/dL (8.4-10.2); Carbon Dioxide 33 mmol/L (22-32); Chloride 94 mmol/L (98-107); Estimated Glomerular Filt Rate 21 mL/min (>60); Globulin 3.0 g/dL (1.7-4.1); Glucose 111 mg/dL (70-99); HEMOLYSIS < 15 (0-50); Magnesium 1.6 mg/dL (1.6-2.3); Potassium 3.8 mmol/L (3.4-5.1); Sodium 133 mmol/L (137-145); Total Protein 7.0 g/dL (6.3-8.2)
[2024-12-09 06:26] LABS: NT-proBNP (BNP-Adult 18+) 45800 pg/mL (<125)
[2024-12-09 06:31] LABS: Thyroid Stimulating Hormone 3.59 uIU/mL (0.47-4.68)
[2024-12-09 06:35] LABS: Troponin I 4.730 ng/mL (0.01-0.034)
--- NOTE | 2024-12-09 06:36 | EKG_ITS ---
[address] [address] Test Date: 2024-12-09 Pat Name: Rose Ramirez Department: [facility] Room: Gender: Female Canvas Baster Jumpbasting: ABEL : 1960 Requested By: Order Number: [id number] Reading MD: Measurements Intervals [place] Rate: 72 P: 22 MD: 252 QRS: 227 QRSD: 100 T: 130 QT: 420 QTc: 459 Interpretive Statements Atrial-paced rhythm with prolonged AV conduction Right superior axis deviation
--- NOTE | 2024-12-09 06:52 | ED_ITS ---
HPI - Wound/Laceration <Tra Brush MD - Last Filed: 12/09/24 06:59> General Chief Complaint: Wound/Laceration Stated Complaint: hbp, port leaking Time Seen by Provider: 12/09/24 04:47 Source: family Mode of arrival: Wheelchair History of Present Illness HPI narrative: C 4-year-old woman with insulin-dependent diabetes and end-stage renal disease is brought in by her because her dialysis fistula would not stop bleeding today. He also reports extremely high blood pressures at home with systolics over 210 with her baseline systolic being around 150-170. He denies the patient complaining of any chest pain or diaphoresis nausea vomiting or headache. There are no other concerns or complaints at this time. He states that she did successfully have dialysis yesterday and her next dialysis is scheduled for Thursday. Related Data Previous Rx's ?Medication ?Instructions ?Recorded amlodipine 10 mg tablet 10 mg PO DAILY #30 tabs 01/24 10/10 ascorbic acid (vitamin C) 500 mg 500 mg PO DAILY #30 t abs 02/16/19 tablet (Vitamin C) aspirin 81 mg tablet,delayed 81 mg PO DAILY #30 tabs 0 02/16/19 release docusate sodium 100 mg capsule 100 mg PO BID PRN Const ipation #60 02/16/19 (DOK) caps ferrous gluconate 324 mg (38 mg 324 mg PO DAILY #30 ta bs 02/16/19 iron) tablet furosemide 40 mg tablet 80 mg (2 x 40 mg) PO 0800,17 00 #60 02/16/19 tabs insulin glargine 100 unit/mL (3 10 unit (0.1 mL) SUBCU T BEDTIME 02/16/19 mL) subcutaneous pen (Lantus #15 mL Solostar U-100 Insulin) labetalol 100 mg tablet 200 mg (2 x 100 mg) PO BID # 180 02/16/19 tabs rosuvastatin 10 mg tablet 5 mg (1/2 x 10 mg) PO BEDTIM E #30 02/16/19 tabs Allergies Allergy/AdvReac Type Severity Reaction Status Date / Time Iodine and Iodide Containing Allergy Verified 12/09/24 04:55 Produc metformin AdvReac Severe Diarrhea Verified 12/09/24 04:55 Patient History <Tra Brush MD - Last Filed: 12/09/24 06:59> Medical History (Updated 12/09/24 @ 07:47 by Sachin Burns DO) Current non-drinker of alcohol Non-smoker Diabetes mellitus, type II Essential hypertension Esophageal dysmotility Surgical History History of Family History (Updated 02/07/19 @ 00:07 by MATTHIEU Celis) Father Diabetes mellitus Prostate cancer Mother Hypertension Social History (Updated 02/06/19 @ 16:57 by Shawanda Peck DO) household members: spouse Smoking Status: Never smoker alcohol intake: never substance use type: does not use Smoking Status: Never smoker Exam <Tra Brush MD - Last Filed: 12/09/24 06:59> Initial Vital Signs Initial Vital Signs: Vital Signs Temperature 97.5 F L 12/09/24 04:25 Pulse Rate 69 12/09/24 04:25 Respiratory Rate 16 12/09/24 04:25 Blood Pressure 186/84 H 12/09/24 04:25 Pulse Oximetry 95 12/09/24 04:25 Oxygen Delivery Method Room Air 12/09/24 04:25 Const General: cooperative, No acute distress, frail appearing, ill appearing (chronically) and lethargic Skin Other: There is a small punctate wound overlying the dialysis fistula which is weeping tiny amounts of blood. Over this when the pressure dressing was removed there was a large clot. <Sachin Burns DO - Last Filed: 12/09/24 07:47> Initial Vital Signs Initial Vital Signs: Vital Signs Temperature 97.5 F L 12/09/24 04:25 Pulse Rate 69 12/09/24 04:25 Respiratory Rate 16 12/09/24 04:25 Blood Pressure 186/84 H 12/09/24 04:25 Pulse Oximetry 95 12/09/24 04:25 Oxygen Delivery Method Room Air 12/09/24 04:25 Course <Tra Brush MD - Last Filed: 12/09/24 06:59> Orders Ordered: ED Orders 12/09/24 04:48 CT head/brain wo con Stat 12/09/24 04:49 Chest [XR chest 1V] Stat 12/09/24 05:30 Ammonia (NH3) Stat BNP [NT-proBNP (BNP-Adult 18+)] Stat CBC Auto Diff [Complete Blood Count AUTO DIFF] Stat CMP [Comprehensive Metabolic Panel] Stat Lactate (Lactic Acid) Stat MAG [Magnesium] Stat TSH [Thyroid Stimulating Hormone] Stat Trop I [Troponin I] Stat 12/09/24 06:26 EKG-12 Lead Stat 12/09/24 07:05 Troponin I Stat Discontinued Medications Labetalol HCl (Labetalol 20 Mg/4 Ml Syringe) 10 mg IV NOW ONE Stop: 12/09/24 04:49 Last Admin: 12/09/24 05:31 Dose: 10 mg Documented By: AB Vital Signs Vital signs: Vital Signs - 8 hr 12/09/24 04:25 12/09/24 04:31 12/09/24 04:32 Temperature 97.5 F L Pulse Rate 69 66 Respiratory Rate 16 Blood Pressure 186/84 H 209/95 H Pulse Oximetry 95 96 Oxygen Delivery Method Room Air 12/09/24 04:33 12/09/24 04:45 12/09/24 05:31 Temperature Pulse Rate 66 73 Respiratory Rate Blood Pressure 202/94 H 184/86 H Pulse Oximetry 96 Oxygen Delivery Method Room Air 12/09/24 05:31 12/09/24 05:31 12/09/24 05:40 Temperature Pulse Rate 72 66 Respiratory Rate Blood Pressure 184/86 H Pulse Oximetry 93 92 Oxygen Delivery Method 12/09/24 05:40 12/09/24 05:50 12/09/24 05:50 Temperature Pulse Rate 66 Respiratory Rate Blood Pressure 161/74 H 164/78 H Pulse Oximetry 91 Oxygen Delivery Method 12/09/24 06:00 12/09/24 06:00 12/09/24 06:10 Temperature Pulse Rate 66 76 Respiratory Rate Blood Pressure 151/69 H Pulse Oximetry 93 90 L Oxygen Delivery Method Room Air 12/09/24 06:10 12/09/24 06:21 Temperature Pulse Rate 71 Respiratory Rate Blood Pressure 181/84 H 165/78 H Pulse Oximetry Oxygen Delivery Method <Sachin Burns, - Last Filed: 12/09/24 07:47> Orders Ordered: ED Orders 12/09/24 04:48 CT head/brain wo con Stat 12/09/24 04:49 Chest [XR chest 1V] Stat 12/09/24 05:30 Ammonia (NH3) Stat BNP [NT-proBNP (BNP-Adult 18+)] Stat CBC Auto Diff [Complete Blood Count AUTO DIFF] Stat CMP [Comprehensive Metabolic Panel] Stat Lactate (Lactic Acid) Stat MAG [Magnesium] Stat TSH [Thyroid Stimulating Hormone] Stat Trop I [Troponin I] Stat 12/09/24 06:26 EKG-12 Lead Stat 12/09/24 07:05 Troponin I Stat Discontinued Medications Labetalol HCl (Labetalol 20 Mg/4 Ml Syringe) 10 mg IV NOW ONE Stop: 12/09/24 04:49 Last Admin: 12/09/24 05:31 Dose: 10 mg Documented By: AB Vital Signs Vital signs: Vital Signs - 8 hr 12/09/24 04:25 12/09/24 04:31 12/09/24 04:32 Temperature 97.5 F L Pulse Rate 69 66 Respiratory Rate 16 Blood Pressure 186/84 H 209/95 H Pulse Oximetry 95 96 Oxygen Delivery Method Room Air 12/09/24 04:33 12/09/24 04:45 12/09/24 05:31 Temperature Pulse Rate 66 73 Respiratory Rate Blood Pressure 202/94 H 184/86 H Pulse Oximetry 96 Oxygen Delivery Method Room Air 12/09/24 05:31 12/09/24 05:31 12/09/24 05:40 Temperature Pulse Rate 72 66 Respiratory Rate Blood Pressure 184/86 H Pulse Oximetry 93 92 Oxygen Delivery Method 12/09/24 05:40 12/09/24 05:50 12/09/24 05:50 Temperature Pulse Rate 66 Respiratory Rate Blood Pressure 161/74 H 164/78 H Pulse Oximetry 91 Oxygen Delivery Method 12/09/24 06:00 12/09/24 06:00 12/09/24 06:10 Temperature Pulse Rate 66 76 Respiratory Rate Blood Pressure 151/69 H Pulse Oximetry 93 90 L Oxygen Delivery Method Room Air 12/09/24 06:10 12/09/24 06:21 Temperature Pulse Rate 71 Respiratory Rate Blood Pressure 181/84 H 165/78 H Pulse Oximetry Oxygen Delivery Method MDM - Wound/Laceration <Tra Brush MD - Last Filed: 12/09/24 06:59> Lab Data 12/09/24 05:30 12/09/24 05:30 Labs: Lab Results 12/09/24 12/09/24 Range/Units 05:30 07:05 WBC 5.1 (4.5-11.0) X10^3/uL RBC 4.21 (4.0-5.2) X10^6/uL Hgb 11.3 L (12.0-16.0) g/dL Hct 34.6 L (36-46) % MCV 82.2 (80-100) fL MCH 26.9 (26-34) PG MCHC 32.7 (30-36) % RDW 19.3 H (11.6-14.8) % Plt Count 198 (150-400) X10^3/uL Neut % (Auto) 63.2 (50-75) % Lymph % (Auto) 22.4 L (25-40) % Haskell % (Auto) 7.5 (3-14) % Eos % (Auto) 4.8 H (2-4) % Baso % (Auto) 2.1 H (0-2) % Neut # (Auto) 3200 (5289-4095) /uL Lymph # (Auto) 1100 (9251-1886) /uL Haskell # (Auto) 400 (0-900) /uL Eos # (Auto) 200 (0-450) /uL Baso # (Auto) 100 (0-100) /uL Sodium 133 L (137-145) mmol/L Potassium 3.8 (3.4-5.1) mmol/L Chloride 94 L (98-107) mmol/L Carbon Dioxide 33 H (22-32) mmol/L BUN 19 H (7-17) mg/dL Creatinine 2.51 H (0.52-1.04) mg/dL Estimated GFR 21 L (>60) mL/min BUN/Creatinine Ratio 7.6 (6-22) Glucose 111 H (70-99) mg/dL Lactate 0.5 L (0.7-2.1) mmol/L Calcium 9.7 (8.4-10.2) mg/dL Magnesium 1.6 (1.6-2.3) mg/dL Total Bilirubin 0.6 (0.2-1.3) mg/dL AST 36 (14-36) IU/L ALT 23 (<35) IU/L Alkaline Phosphatase 85 (38-126) U/L Ammonia < 9 L (9-30) umol/L Troponin I 4.730 H* 4.220 H* (0.01-0.034) ng/mL NT-Pro-B Natriuret Pep 83981 H (<125) pg/mL Total Protein 7.0 (6.3-8.2) g/dL Albumin 4.0 (3.5-5.0) g/dL Globulin 3.0 (1.7-4.1) g/dL Albumin/Globulin Ratio 1.3 (1.0-2.8) TSH 3.59 (0.47-4.68) uIU/mL ECG Data Interpretation: AV paced rhythm rate 75. LAFB. <Sachin Burns, DO - Last Filed: 12/09/24 07:47> Lab Data Labs: Lab Results 12/09/24 12/09/24 Range/Units 05:30 07:05 WBC 5.1 (4.5-11.0) X10^3/uL RBC 4.21 (4.0-5.2) X10^6/uL Hgb 11.3 L (12.0-16.0) g/dL Hct 34.6 L (36-46) % MCV 82.2 (80-100) fL MCH 26.9 (26-34) PG MCHC 32.7 (30-36) % RDW 19.3 H (11.6-14.8) % Plt Count 198 (150-400) X10^3/uL Neut % (Auto) 63.2 (50-75) % Lymph % (Auto) 22.4 L (25-40) % Haskell % (Auto) 7.5 (3-14) % Eos % (Auto) 4.8 H (2-4) % Baso % (Auto) 2.1 H (0-2) % Neut # (Auto) 3200 (6703-4679) /uL Lymph # (Auto) 1100 (4140-2665) /uL Haskell # (Auto) 400 (0-900) /uL Eos # (Auto) 200 (0-450) /uL Baso # (Auto) 100 (0-100) /uL Sodium 133 L (137-145) mmol/L Potassium 3.8 (3.4-5.1) mmol/L Chloride 94 L (98-107) mmol/L Carbon Dioxide 33 H (22-32) mmol/L BUN 19 H (7-17) mg/dL Creatinine 2.51 H (0.52-1.04) mg/dL Estimated GFR 21 L (>60) mL/min BUN/Creatinine Ratio 7.6 (6-22) Glucose 111 H (70-99) mg/dL Lactate 0.5 L (0.7-2.1) mmol/L Calcium 9.7 (8.4-10.2) mg/dL Magnesium 1.6 (1.6-2.3) mg/dL Total Bilirubin 0.6 (0.2-1.3) mg/dL AST 36 (14-36) IU/L ALT 23 (<35) IU/L Alkaline Phosphatase 85 (38-126) U/L Ammonia < 9 L (9-30) umol/L Troponin I 4.730 H* 4.220 H* (0.01-0.034) ng/mL NT-Pro-B Natriuret Pep 58675 H (<125) pg/mL Total Protein 7.0 (6.3-8.2) g/dL Albumin 4.0 (3.5-5.0) g/dL Globulin 3.0 (1.7-4.1) g/dL Albumin/Globulin Ratio 1.3 (1.0-2.8) TSH 3.59 (0.47-4.68) uIU/mL MDM Narrative Medical decision making narrative: Dr. Burns: Patient was signed out to me Dr. Brush, patient is a 64-year-old female with a history of end-stage renal disease, hypertension, presenting for fistula bleeding, patient is on clopidogrel. Patient had dialysis yesterday according to the patient as well as the she had some oozing that they were unable to get control of and therefore came into the ED. At time of my evaluation patient bleeding is controlled with pressure dressing on the left upper extremity. Patient is not having any chest pain shortness of breath or any other symptoms at this time. Patient did receive labetalol IV here with improvement of blood pressure. Patient did have elevated troponin however upon further discussion with the patient and has been she just had a pacemaker placed a proximally 1 week ago, they state that she is also due for dialysis tomorrow. They state that they will follow up with their senior technical manager, troponin is down trending initial was 4.730, with repeat at 4.220, patient without any active chest pain EKG nonischemic this is most likely elevated secondary to either recent postop pacemaker placement and or episode of type 2 spilled given hypertensive episode. Patient is at baseline is requesting to go home, patient will be discharged home with strict return precautions verbalized understanding of this and agrees to being discharged home with outpatient follow up Discharge Plan Departure Patient Disposition: Home Clinical Impression: Asymptomatic hypertension, Hemorrhage of arteriovenous fistula Activity Restrictions/Additional Instructions: Please follow up with your primary care doctor, senior technical manager as needed. Please read the discharge instructions sheet carefully and bring all papers to all doctor follow-up visits, as it may contain information that your doctor may want to see. Disease processes change and evolve, if your symptoms worsen or if you develop any new symptoms that are concerning to you please return for evaluation. Your evaluation today does not show any evidence of any life- threatening/serious illnesses requiring admission to the hospital or surgery. Please follow-up with your doctor for re-evaluation in approximately 1 day. Seek immediate medical attention for any worrisome symptoms. *If you do not have a primary care provider please contact the [facility] Resource line at [phone]. They will ask some questions about your medical history and help get you set up with a doctor in the community. Prescriptions: No Action furosemide 40 mg Tablet 80 mg PO 0800,1700 Qty: 60 0RF ascorbic acid (vitamin C) [Vitamin C] 500 mg Tablet 500 mg PO DAILY Qty: 30 0RF ferrous gluconate 324 mg (38 mg iron) Tablet 324 mg PO DAILY Qty: 30 0RF Lantus Solostar U-100 Insulin 100 unit/mL (3 mL) Insulin Pen 10 unit subcut BEDTIME Qty: 15 0RF labetalol 100 mg Tablet 200 mg PO BID Qty: 180 0RF rosuvastatin 10 mg Tablet 5 mg PO BEDTIME Qty: 30 0RF docusate sodium [DOK] 100 mg Capsule 100 mg PO BID PRN (Reason: Constipation) Qty: 60 0RF aspirin 81 mg tablet,delayed release (DR/EC) 81 mg PO DAILY Qty: 30 0RF amlodipine 10 mg tablet 10 mg PO DAILY Qty: 30 0RF Stand Alone Forms: Patient Portal/API ED Sign-out <Tra Brush MD - Last Filed: 12/09/24 06:59> Sign Out Provider Sign Out Attestation: KIMBERLEE: Care handed off to my colleague at 0700. 2nd trop was pending
[2024-12-09 07:39] LABS: Troponin I 4.220 ng/mL (0.01-0.034)
== END 2024-12-09 07:55 | disposition home or self-care (01) ==
PROVIDERS: Emergency Medicine; Emergency Provider Student in an Organized Health Care Education/Training Program
DX: I10 Essential (primary) hypertension (principal); T82.838A Hemorrhage due to vascular prosthetic devices, implants and grafts, initial encounter
CPT/HCPCS: 36415; 70450; 71045; 80053; 82140; 83605; 83735; 83880; 84443; 84484; 85025; 93005; 96374; 99284